=== PATIENT | female | born 1980 | race American Indian/Alaskan Native ===

== ENCOUNTER 2021-11-07 21:56 | Inpatient (IN) | payer OTHER ==
--- NOTE | 2021-11-07 22:37 | Emergency Department Report ---
ED General Adult HPI - General Chief complaint: Neuro Symptoms/Deficit Stated complaint: LEFT ARM PAIN PUI?: No Time Seen by Provider: 11/07/21 22:35 Source: patient, RN notes reviewed, old records reviewed Mode of arrival: Ambulatory Limitations: No Limitations - History of Present Illness Initial comments: The patient was evaluated in the emergency department for symptoms described in the history of present illness. He/she was evaluated in the context of the global COVID-19 pandemic, which necessitated consideration that the patient might be at risk for infection with the virus that causes COVID-19. Institutional protocols and algorithms that pertain to the evaluation of patients at risk for COVID-19 are in a state of rapid change based on information released by regulatory bodies including the CDC and federal and state organizations. These policies and algorithms were followed during the patient's care in the emergency department. Please note that these policies, procedures and recommendations changed on a rapid basis. This patient is a 41-year-old female, with a past medical history of body mass index of 41, hypertension, who works in this hospital, presenting to the ER today with a primary complaint of nontraumatic left upper extremity numbness and tingling, starting from her left shoulder moving down into her left bicep, then moving distally. Her last known well time is approximately 6 or 6:30 PM. The patient denies headache, neck pain, chest pain, abdominal pain. She endorses muscular paral umbar back pain, generalized lower extremity weakness, numbness, bladder or bowel retention incontinence and saddle anesthesia. 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 The patient does not have a known history of obstructive sleep apnea, but she has not had a formal sleep study. She denies urinary symptoms, the possibility of , and reports that she has not delivered her given within the past 6 weeks. She does report mostly being compliant with her antihypertensive medications. She does report that her primary care provider has experienced difficulty with controlling her blood pressure. -: hour(s) Location: left, upper extremity Consistency: intermittent Improves with: none Worsens with: none - Related Data Previous Rx's Medication Instructions Recorded Last Taken Type cloNIDine [Catapres] 0.1 mg PO Q12HR #60 tablet 01/29/14 Unknown Rx labetaloL [Labetalol 200mg TAB] 200 mg PO BID #60 tablet 01/29/14 Unknown Rx lisinopriL [Zestril TAB] 20 mg PO BID #60 tablet 01/29/14 Unknown Rx Allergies Allergy/AdvReac Type Severity Reaction Status Date / Time amlodipine Allergy Swelling Verified 11/07/21 22:11 lisinopril Allergy Swelling Verified 11/07/21 22:11 ED Review of Systems ROS: Stated complaint: LEFT ARM PAIN Other details as noted in HPI Constitutional: denies: fever Eyes: denies: eye discharge, vision change ENT: denies: epistaxis Respiratory: denies: cough Cardiovascular: denies: chest pain Gastrointestinal: denies: abdominal pain Musculoskeletal: back pain, myalgia. denies: arthralgia Neurological: weakness, numbness. denies: headache ED Past Medical Hx - Past Medical History Hx Hypertension: Yes Hx Heart Attack/AMI: No Hx Congestive Heart Failure: No Hx Diabetes: No Hx Deep Vein Thrombosis: No Hx Pulmonary Embolism: No Hx Liver Disease: No Hx Renal Disease: No Hx Arthritis: No Hx Headaches / Migraines: No Hx Seizures: No Hx Kidney Stones: No Hx Asthma: No Hx COPD: No Hx Tuberculosis: Yes Hx Dementia: No Hx HIV: No - Surgical History Hx Coronary Stent: No Hx Open Heart Surgery: No Hx Pacemaker: No Hx Internal Defibrillator: No Additional Surgical History: x 2 - Social History Smoking Status: Never Smoker - Medications Home Medications: Home Medications Medication Instructions Recorded Confirmed Last Taken Type cloNIDine [Catapres] 0.1 mg PO Q12HR #60 tablet 01/29/14 Unknown Rx labetaloL [Labetalol 200mg TAB] 200 mg PO BID #60 tablet 01/29/14 Unknown Rx lisinopriL [Zestril TAB] 20 mg PO BID #60 tablet 01/29/14 Unknown Rx ED Physical Exam - General Limitations: No Limitations General appearance: alert, in no apparent distress - Head Head exam: Present: atraumatic, normocephalic - Eye Eye exam: Present: normal appearance, PERRL, EOMI, other (Visual acuity intact to finger counting, color perception, reading at a close distance). Absent: nystagmus - ENT ENT exam: Present: normal exam, normal orophraynx, mucous membranes moist, normal external ear exam - Neck Neck exam: Present: normal inspection, full ROM. Absent: tenderness, m eningismus - Respiratory Respiratory exam: Present: normal lung sounds bilaterally. Absent: respiratory distress, wheezes, rales, rhonchi, stridor, decreased breath sounds - Cardiovascular Cardiovascular Exam: Present: regular rate, normal rhythm, normal heart sounds. Absent: bradycardia, tachycardia, irregular rhythm, systolic murmur, diastolic murmur, rubs, gallop - GI/Abdominal GI/Abdominal exam: Present: soft. Absent: distended, tenderness, guarding, rebound, rigid, pulsatile mass - Extremities Exam Extremities exam: Present: normal inspection, full ROM, other (2+ pulses noted in the bilateral upper and lower extremities. There is no palpable cord. negative Homans sign. Muscular compartments are soft. The pelvis is stable.). Absent: pedal edema, calf tenderness - Back Exam Back exam: Present: normal inspection, muscle spasm, paraspinal tenderness. Absent: tenderness, CVA tenderness (R), CVA tenderness (L), vertebral tenderness - Neurological Exam Neurological exam: Present: alert, oriented X3, normal gait, other (No facial droop. Tongue midline. Extraocular movements intact bilaterally. Facial sensation intact to light touch in V1, V2, V3 distribution bilaterally. 5 and a 5 strength in 4 extremities. Sensation intact to light touch in 4 extremities.). Absent: motor sensory deficit - Psychiatric Psychiatric exam: Present: normal affect, normal mood - Skin Skin exam: Present: warm, dry, intact, normal color. Absent: rash ED Course Vital Signs 11/07/21 11/08/21 22:08 00:33 Temperature 98.4 F Pulse Rate 71 Respiratory 20 Rate Blood Pressure 187/107 O2 Sat by Pulse 97 Oximetry O2 Sat by Pulse 99 Oximetry [ Digit-Finger] - Reevaluation(s) Reevaluation #1: 11/08/21 00:30 Differential diagnosis, including but not limited to: Cervical radiculopathy, TIA, chronic hypertension, musculoskeletal back pain Assessment and plan: 41-year-old female, who is clinically sober, with a GCS of 15, NIH score of 0, presenting with probable left-sided cervical radiculopathy. However, she does have a number of vascular risk factors for TIA. Patient not a tPA candidate given that she has an NIH score of 0 at this time. Her examination is not suggestive or indicative of a large vessel occlusion. Abdomen soft and benign, without pulsatile abdominal mass, and she has equal pulses in the upper and lower extremities, as well as reproducible back pain. Extensive discussion had with patient that she may have undiagnosed and untre ated obstructive sleep apnea, recommendations provided to patient to follow-up with an outpatient primary care doctor for sleep study. Have also advised patient to get at least 7 to 8 hours of good quality uninterrupted sleep each evening. Nevertheless, patient is recommended for admission to rule her out for TIA. Patient also works with the [employer] system, and asked if she could be transferred to the [place] system. [place] called up Milana Vyas in [facility], and they do not have available beds. I personally called the [place] transfer center yesterday for the [facility] for an unrelated patient, and they do not have available beds. The patient is agreeable to admission and hospitalization here. Currently awaiting callback from the hospital physician. Patient also seen in conjunction with stroke neurologist, Dr. Zimmer, who is in agreement with the plan of care. We will treat the patient's musculoskeletal back pain, start aspirin, and administer antihypertensive therapy. Reevaluation #2: 11/08/21 01:49 Dr Ruy Castorena to admit to [facility] - Pulse Oximetry Interpretation Digit-Finger Initial Pulse Oximetry Readin O2 Sat by Pulse Oximetry: 99 Actions Taken: none ED Medical Decision Making - Lab Data Result diagrams: 11/07/21 22:48 11/07/21 22:48 Vital Signs 11/07/21 22:08 Temperature 98.4 F Pulse Rate 71 Respiratory 20 Rate Blood Pressure 187/107 O2 Sat by Pulse 97 Oximetry Lab Results 11/07/21 11/07/21 11/07/21 Range/Units 22:30 22:48 22:48 WBC 7.3 (4.5-11.0) K/mm3 RBC 5.42 H (3.65-5.03) M/mm3 Hgb 9.1 L (10.1-14.3) gm/dl Hct 30.8 (30.3-42.9) % MCV 57 L (79-97) fl MCH 17 L (28-32) pg MCHC 30 (30-34) % RDW 19.2 H (13.2-15.2) % Plt Count 405 (140-440) K/mm3 Lymph % (Auto) 17.5 (13.4-35.0) % [place] % (Auto) 1.1 (0.0-7.3) % Eos % (Auto) 0.0 (0.0-4.3) % Baso % (Auto) 0.5 (0.0-1.8) % Lymph # (Auto) 1.3 (1.2-5.4) K/mm3 [place] # (Auto) 0.1 (0.0-0.8) K/mm3 Eos # (Auto) 0.0 (0.0-0.4) K/mm3 Baso # (Auto) 0.0 (0.0-0.1) K/mm3 Seg Neutrophils % 80.9 H (40.0-70.0) % Seg Neutrophils # 5.9 (1.8-7.7) K/mm3 PT 13.2 (12.2-14.9) Sec. INR 0.91 (0.87-1.13) APTT 24.1 L (24.2-36.6) Sec. Thrombin Time 14.1 L (15.1-19.6) Sec. Sodium (137-145) mmol/L Potassium (3.6-5.0) mmol/L Chloride (98-107) mmol/L Carbon Dioxide (22-30) mmol/L Anion Gap mmol/L BUN (7-17) mg/dL Creatinine (0.6-1.2) mg/dL Estimated GFR ml/min BUN/Creatinine Ratio % Glucose (65-100) mg/dL POC Glucose 244 H (70-105) mg/dL Calcium (8.4-10.2) mg/dL Total Bilirubin (0.1-1.2) mg/dL AST (5-40) units/L ALT (7-56) units/L Alkaline Phosphatase (35-129) units/L Total Creatine Kinase (30-135) units/L CK-MB (CK-2) (0.0-4.0) ng/mL CK-MB (CK-2) Rel Index (0-4) Troponin T (0.00-0.029) ng/mL Total Protein (6.3-8.2) g/dL Albumin (3.9-5) g/dL Albumin/Globulin Ratio % HCG, Quant (0-4) mIU/mL Plasma/Serum Alcohol (0-0.07) % 11/07/21 11/07/21 11/07/21 Range/Units 22:48 22:48 22:48 WBC (4.5-11.0) K/mm3 RBC (3.65-5.03) M/mm3 Hgb (10.1-14.3) gm/dl Hct (30.3-42.9) % MCV (79-97) fl MCH (28-32) pg MCHC (30-34) % RDW (13.2-15.2) % Plt Count (140-440) K/mm3 Lymph % (Auto) (13.4-35.0) % [place] % (Auto) (0.0-7.3) % Eos % (Auto) (0.0-4.3) % Baso % (Auto) (0.0-1.8) % Lymph # (Auto) (1.2-5.4) K/mm3 [place] # (Auto) (0.0-0.8) K/mm3 Eos # (Auto) (0.0-0.4) K/mm3 Baso # (Auto) (0.0-0.1) K/mm3 Seg Neutrophils % (40.0-70.0) % Seg Neutrophils # (1.8-7.7) K/mm3 PT (12.2-14.9) Sec. INR (0.87-1.13) APTT (24.2-36.6) Sec. Thrombin Time (15.1-19.6) Sec. Sodium 136 L (137-145) mmol/L Potassium 3.9 (3.6-5.0) mmol/L Chloride 99.1 (98-107) mmol/L Carbon Dioxide 21 L (22-30) mmol/L Anion Gap 20 mmol/L BUN 15 (7-17) mg/dL Creatinine 0.9 (0.6-1.2) mg/dL Estimated GFR > 60 ml/min BUN/Creatinine Ratio 17 % Glucose 259 H (65-100) mg/dL POC Glucose (70-105) mg/dL Calcium 9.9 (8.4-10.2) mg/dL Total Bilirubin 0.50 (0.1-1.2) mg/dL AST 20 (5-40) units/L ALT 6 L (7-56) units/L Alkaline Phosphatase 84 (35-129) units/L Total Creatine Kinase 123 (30-135) units/L CK-MB (CK-2) 1.3 (0.0-4.0) ng/mL CK-MB (CK-2) Rel Index 1.0 (0-4) Troponin T < 0.010 (0.00-0.029) ng/mL Total Protein 9.4 H (6.3-8.2) g/dL Albumin 4.5 (3.9-5) g/dL Albumin/Globulin Ratio 0.9 % HCG, Quant < 2 (0-4) mIU/mL Plasma/Serum Alcohol < 0.01 (0-0.07) % - EKG Data -: EKG Interpreted by [place] EKG shows normal: sinus rhythm Rate: normal - EKG Data 11/08/21 00:30 EKG is interpreted at 22: 24 Sinus rhythm, 63 bpm. Normal axis, normal intervals, motion artifact, QTC 4 2 6 ms, normal P wave axis. This EKG is not a STEMI. - Radiology Data Radiology results: pending, report reviewed, image reviewed CT HEAD WITHOUT CONTRAST INDICATION / CLINICAL INFORMATION: Stroke symptoms. TECHNIQUE: All CT scans at this location are performed using CT dose reduction for ALARA by means of automated exposure control. COMPARISON: None available. FINDINGS: BRAIN PARENCHYMA: No acute intracranial hemorrhage. No evidence of recent infarct. No mass effect or midline shift. VENTRICULAR SYSTEM/EXTRA-AXIAL SPACES: Ventricles are normal for age. No extra-axial fluid collection. ORBITS: Normal as visualized. SKELETAL SYSTEM/SOFT TISSUES: Normal bones and soft tissues. PARANASAL SINUSES/MASTOID AIR CELLS: No significant abnormality. ADDITIONAL FINDINGS: None. IMPRESSION: 1. No acute intracranial abnormality. CODE STROKE Time of Communication (MID LEVEL PROVIDER/CDT): 11/07/2021 9:49 PM. Licensed Practitioner Receiving Report: SAM GRANGER MD Signer Name: Brandon Boggs MD Signed: 11/07/2021 9:50 PM Workstation Name: [id number] Critical care attestation.: If time is entered above; I have spent that time in minutes in the direct care of this critically ill patient, excluding procedure time. ED Disposition Clinical Impression: Hypertensive urgency, BMI greater than 40, Left arm numbness Disposition: ADMITTED INPATIENT Is pt being admited?: Yes Does the pt Need Aspirin: No Condition: Good
--- NOTE | 2021-11-07 22:45 | Emergency Department Report ---
Blank Doc - Documentation Documentation: [facility] Consult Note # Demographics Consult Type: Acute Stroke Level 1 (0-4.5 hrs) Patient Location: Emergency Room First Name: Shanika Last Name: Dameon Date of : 1980 Age: 41 Gender: Female Facility: [facility] Time of Initial Page ( Time): 11/07/2021, 22:33 Time of Return Call ( Time): 11/07/2021, 22:33 # HPI History: 41yo F presents # Scores Time of exam and NIHSS ( Time): 11/07/2021, 22:41 Level of Consciousness 1a: [0] = Alert; keenly responsive LOC Questions 1b: [0] = Answers both questions correctly LOC Commands 1c: [0] = Performs both tasks correctly Best Gaze 2: [0] = Normal Visual 3: [0] = No visual loss Facial Palsy 4: [0] = Normal symmetrical movements Motor Arm Left 5a: [0] = No drift Motor Arm Right 5b: [0] = No drift Motor Leg Left 6a: [0] = No drift Motor Leg Right 6b: [0] = No drift Limb Ataxia 7: [0] = Absent Sensory 8: [1] = [id number] sensory loss Best Language 9: [0] = No aphasia Dysarthria 10: [0] = Normal Extinction and Inattention 11: [0] = No abnormality NIHSS Total: 1 # Data Head CT: no bleed preliminary read # Plan Thrombolytic/Intervention: NOT IV Thrombolysis or IA Intervention candidate Thrombolytic Exclusion (< 3 hour window): non-disabling deficit Intraarterial Exclusion: non-disabling Other: I have discussed my recommendations with the referring provider # [employer] Telemedicine: Interactive 2 way audio and visual telecommunication technology was utilized during this visit
--- NOTE | 2021-11-07 22:54 | Cat Scan Report ---
CT HEAD WITHOUT CONTRAST INDICATION / CLINICAL INFORMATION: Stroke symptoms. TECHNIQUE: All CT scans at this location are performed using CT dose reduction for ALARA by means of automated exposure control. COMPARISON: None available. FINDINGS: BRAIN PARENCHYMA: No acute intracranial hemorrhage. No evidence of recent infarct. No mass effect or midline shift. VENTRICULAR SYSTEM/EXTRA-AXIAL SPACES: Ventricles are normal for age. No extra-axial fluid collection . ORBITS: Normal as visualized. SKELETAL SYSTEM/SOFT TISSUES: Normal bones and soft tissues. PARANASAL SINUSES/MASTOID AIR CELLS: No significant abnormality. ADDITIONAL FINDINGS: None. IMPRESSION: 1. No acute intracranial abnormality. CODE STROKE Time of Communication (SIGN LANGUAGE INSTRUCTOR/CDT): 11/07/2021 9:49 PM. Licensed Practitioner Receiving Report: SAM GRANGER MD Signer Name: Fred Boggs MD Signed: 11/07/2021 10:50 PM Workstation Name: [id number]
[2021-11-07 23:06] LABS: Basophils % (Auto) 0.5 % (0.0-1.8); Lymphocytes # (Auto) 1.3 K/mm3 (1.2-5.4); Lymphocytes % (Auto) 17.5 % (13.4-35.0); Mean Corpuscular HGB Conc 30 % (30-34); Monocytes # (Auto) 0.1 K/mm3 (0.0-0.8); Monocytes % (Auto) 1.1 % (0.0-7.3); Platelet Count 405 K/mm3 (140-440); Red Blood Count 5.42 M/mm3 (3.65-5.03); Red Cell Distribution Width 19.2 % (13.2-15.2)
[2021-11-07 23:10] LABS: Hematocrit 30.8 % (30.3-42.9); Hemoglobin 9.1 gm/dl (10.1-14.3)
[2021-11-07 23:11] LABS: Mean Corpuscular Volume 57 fl (79-97)
[2021-11-07 23:16] LABS: INR 0.91 (0.87-1.13)
[2021-11-07 23:17] LABS: Partial Thromboplastin Time 24.1 Sec. (24.2-36.6); Thrombin Time 14.1 Sec. (15.1-19.6)
[2021-11-07 23:22] LABS: Alanine Aminotransferase 6 units/L (7-56); Albumin 4.5 g/dL (3.9-5); BUN/Creatinine Ratio 17; Blood Urea Nitrogen 15 mg/dL (7-17); Calcium 9.9 mg/dL (8.4-10.2); Creatine Kinase MB 1.3 ng/mL (0.0-4.0); Hemolysis Index 0
[2021-11-07] MEDS ORDERED: hydrALAZINE 20 MG/1 ML INJ IV STA (23:42)
[2021-11-07] MEDS ORDERED: ASPIRIN 325 MG TAB PO ONE (23:42)
[2021-11-07] MEDS ORDERED: ACETAMINOPHEN 500 MG TAB PO ONE (23:42)
[2021-11-08] MEDS ORDERED: IBUPROFEN 400 MG TAB PO ONE (01:44)
[2021-11-08] MEDS ORDERED: PROMETHAZINE 25 MG RECT SUPP PR PRN (02:17)
[2021-11-08] MEDS ORDERED: ACETAMINOPHEN 325 MG TAB PO PRN (02:17)
[2021-11-08] MEDS ORDERED: MAGNESIUM HYDROXIDE (MOM) ORAL LIQD UDC PO PRN ×2 (02:17)
[2021-11-08] MEDS ORDERED: METOCLOPRAMIDE 10 MG TAB PO PRN (02:17)
[2021-11-08] MEDS ORDERED: MORPHINE 4 MG/1 ML INJ IV PRN ×2 (02:17)
[2021-11-08] MEDS ORDERED: ONDANSETRON 4 MG/2 ML INJ IV PRN ×2 (02:17)
[2021-11-08] MEDS ORDERED: MORPHINE 2 MG/1 ML INJ IV PRN (02:17)
--- NOTE | 2021-11-08 02:37 | History and Physical Report ---
History of Present Illness Date of examination: 11/08/21 Date of admission: 11/08/2021 Chief complaint: Left upper extremity numbness History of present illness: 41-year-old female with known of hypertension, obstructive sleep apnea and morbid obesity presenting to the emergency room today extremity numbness ,tingling with some left shoulder pain. Symptoms were said started about 6:30 PM earlier in the day. She admits that she has been having some lower back extremity weakness this. She denies any headache or dizziness, no nausea or vomiting and no abdominal pain. She denies any fever or chills, denies any urinary or fecal incontinence. 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 Upon arrival in the emergency room today, blood pressure was elevated with systolic in the 170s and diastolic in the 80s. Work-up in the emergency room today, lab is significant hyperglycemia of 259. CT scan of the head was unremarkable. Past History Past Medical History: hypertension Past Surgical History: Social history: no significant social history Family history: no significant family history Medications and Allergies Allergies Allergy/AdvReac Type Severity Reaction Status Date / Time amlodipine Allergy Swelling Verified 11/07/21 22:11 lisinopril Allergy Swelling Verified 11/07/21 22:11 Home Medications Medication Instructions Recorded Confirmed Last Taken Type cloNIDine [Catapres] 0.1 mg PO Q12HR #60 tablet 01/29/14 Unknown Rx labetaloL [Labetalol 200mg TAB] 200 mg PO BID #60 tablet 01/29/14 Unknown Rx lisinopriL [Zestril TAB] 20 mg PO BID #60 tablet 01/29/14 Unknown Rx Active Meds: Active Medications Acetaminophen (Acetaminophen 325 Mg Tab) 650 mg PO Q4H PRN PRN Reason: Pain MILD(1-3)/Fever >100.5/GALVAN Acetaminophen (Acetaminophen 325 Mg Tab) 650 mg PO Q4H PRN PRN Reason: Pain, Mild (1-3) Aspirin (Aspirin 325 Mg Tab) 325 mg PO QDAY JAIRO Atorvastatin Calcium (Atorvastatin 40 Mg Tab) 40 mg PO QHS JAIRO Bisacodyl (Bisacodyl 10 Mg Rect Supp) 10 mg OH QDAY PRN PRN Reason: Constipation Magnesium Hydroxide (Magnesium Hydroxide (Mom) Oral Liqd Udc) 30 ml PO Q4H PRN PRN Reason: Constipation Magnesium Hydroxide (Magnesium Hydroxide (Mom) Oral Liqd Udc) 30 ml PO Q4H PRN PRN Reason: Constipation Metoclopramide HCl (Metoclopramide 10 Mg Tab) 10 mg PO Q6H PRN PRN Reason: Nausea And Vomiting Morphine Sulfate (Morphine 2 Mg/1 Ml Inj) 2 mg IV Q4H PRN PRN Reason: Pain, Moderate (4-6) Morphine Sulfate (Morphine 4 Mg/1 Ml Inj) 4 mg IV Q4H PRN PRN Reason: Pain , Severe (7-10) Morphine Sulfate (Morphine 2 Mg/1 Ml Inj) 2 mg IV Q4H PRN PRN Reason: Pain, Moderate (4-6) Morphine Sulfate (Morphine 4 Mg/1 Ml Inj) 4 mg IV Q4H PRN PRN Reason: Pain , Severe (7-10) Ondansetron HCl (Ondansetron 4 Mg/2 Ml Inj) 4 mg IV Q8H PRN PRN Reason: Nausea And Vomiting Ondansetron HCl (Ondansetron 4 Mg/2 Ml Inj) 4 mg IV Q8H PRN PRN Reason: Nausea And Vomiting Promethazine HCl (Promethazine 25 Mg Rect Supp) 25 mg OH Q6H PRN PRN Reason: Nausea And Vomiting Sodium Chloride (Sodium Chloride 0.9% 10 Ml Flush Syringe) 10 ml IV BID JAIRO Sodium Chloride (Sodium Chloride 0.9% 10 Ml Flush Syringe) 10 ml IV PRN PRN PRN Reason: LINE FLUSH Sodium Chloride (Sodium Chloride 0.9% 10 Ml Flush Syringe) 10 ml INJ PRN PRN PRN Reason: LINE FLUSH Review of Systems Constitutional: no fever, no chills Ears, nose, mouth and throat: no nasal congestion, no sore throat Cardiovascular: no chest pain, no orthopnea, no palpitations Respiratory: no cough, no shortness of breath Gastrointestinal: no abdominal pain, no nausea, no vomiting, no diarrhea Genitourinary Female: no flank pain, no dysuria, no hematuria Musculoskeletal: low back pain, no neck pain Integumentary: no rash, no pruritis Neurological: no headaches, no confusion Psychiatric: no anxiety, no depression Endocrine: no polyphagia, no polydipsia, no polyuria, no nocturia Exam - Constitutional Vitals: Temp Pulse Resp BP Pulse Ox 98.4 F 71 20 173/80 99 11/07/21 22:08 11/07/21 22:08 11/07/21 22:08 11/08/21 01:58 11/08/21 01:49 General appearance: Present: no acute distress, well-nourished - EENT Eyes: Present: PERRL, EOM intact. Absent: scleral icterus ENT: hearing intact, clear oral mucosa, dentition normal - Neck Neck: Present: supple, normal ROM - Respiratory Respiratory effort: normal Respiratory: bilateral: CTA - Cardiovascular Rhythm: regular Heart Sounds: Present: S1 & S2. Absent: gallop, systolic murmur, diastolic murmur, rub, click - Extremities Extremities: no ischemia, pulses intact, pulses symmetrical, No edema, normal temperature, normal color, Full ROM Peripheral Pulses: within normal limits - Abdominal General gastrointestinal: Present: soft, non-tender, non-distended, normal bowel sounds. Absent: mass - Integumentary Integumentary: Present: clear, warm, dry, normal turgor. Absent: rash - Musculoskeletal Musculoskeletal: strength equal bilaterally - Psychiatric Psychiatric: appropriate mood/affect, intact judgment & insight, memory intact, cooperative - Neurologic Neurologic: CNII-XII intact, no focal deficits, moves all extremities HEART Score - HEART Score Troponin: Troponin T < 0.010 ng/mL (0.00-0.029) 11/07/21 22:48 Results - Labs CBC & Chem 7: 11/07/21 22:48 11/07/21 22:48 Labs: Abnormal lab results 11/07/21 11/07/21 11/07/21 Range/Units 22:30 22:48 22:48 RBC 5.42 H (3.65-5.03) M/mm3 Hgb 9.1 L (10.1-14.3) gm/dl MCV 57 L (79-97) fl MCH 17 L (28-32) pg RDW 19.2 H (13.2-15.2) % Seg Neutrophils % 80.9 H (40.0-70.0) % APTT 24.1 L (24.2-36.6) Sec. Thrombin Time 14.1 L (15.1-19.6) Sec. Sodium (137-145) mmol/L Carbon Dioxide (22-30) mmol/L Glucose (65-100) mg/dL POC Glucose 244 H (70-105) mg/dL ALT (7-56) units/L Total Protein (6.3-8.2) g/dL // Range/Units 22:48 RBC (3.65-5.03) M/mm3 Hgb (10.1-14.3) gm/dl MCV (79-97) fl MCH (28-32) pg RDW (13.2-15.2) % Seg Neutrophils % (40.0-70.0) % APTT (24.2-36.6) Sec. Thrombin Time (15.1-19.6) Sec. Sodium 136 L (137-145) mmol/L Carbon Dioxide 21 L (22-30) mmol/L Glucose 259 H (65-100) mg/dL POC Glucose (70-105) mg/dL ALT 6 L (7-56) units/L Total Protein 9.4 H (6.3-8.2) g/dL Assessment and Plan - Patient Problems (1) Left arm numbness Current Visit: Yes Status: Acute Plan to address problem: Allergy unclear. Patient will be scheduled for MRI of the brain, carotid Doppler Consult placed to neurology for evaluation and recommendations. (2) Morbid obesity with BMI of 40.0-44.9, adult Current Visit: Yes Status: Acute Plan to address problem: [facility] dietary consult. Lifestyle modification encouraged. (3) Hypertensive urgency Current Visit: Yes Status: Acute Plan to address problem: Resume routine home medications and monitor vital signs closely. (4) Radiculopathy with lower extremity symptoms Current Visit: No Status: Acute Plan to address problem: We await further evaluation by neurology. (5) Hyperglycemia Current Visit: Yes Status: Acute Plan to address problem: Will monitor accucheck (6) DVT prophylaxis Current Visit: Yes Status: Acute Plan to address problem: Patient placed on subcutaneous heparin. (7) Full code status Current Visit: Yes Status: Acute Plan to address problem: Patient is full code.
[2021-11-08] MEDS ORDERED: DEXTROSE 50% IN WATER (25GM) 50 ML SYRINGE IV PRN (08:30)
[2021-11-08 08:59] LABS: Chol/HDL Ratio 4.44 %
[2021-11-08] MEDS ORDERED: hydrALAZINE 20 MG/1 ML INJ IV PRN (09:00)
--- NOTE | 2021-11-08 09:17 | Consultation ---
History of Present Illness Consult date: 11/08/21 Reason for Consult: Left side numbness History of present illness: Left upper extremity numbness History of present illness: 41-year-old female with known of hypertension, obstructive sleep apnea and morbid obesity,SP gastric sleeve surgery 2016 Presented to the emergency room today extremity numbness ,tingling with some left shoulder pain. Symptoms were said started about 6:30 PM earlier in the day. She admits that she has been having some lower back extremity weakness She denies any headache or dizziness, no nausea or vomiting and no abdominal pain. She denies any fever or chills, denies any urinary or fecal incontinence. 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 Upon arrival in the emergency room today, blood pressure was elevated with systolic in the 170s and diastolic in the 80s. Work-up in the emergency room today, lab is significant hyperglycemia of 259. CT scan of the head was unremarkable. pt. is with hx of gastric sleeve surgery 2017 she lost over55 lbs initially and now she gained 30 lbs she is taking no vitamins Past History Past Medical History: hypertension Past Surgical History: , gastic sleeve surgery 2017 Social history: no significant social history Family history: no significant family history Medications and Allergies Allergies Allergy/AdvReac Type Severity Reaction Status Date / Time amlodipine Allergy Swelling Verified 11/07/21 22:11 lisinopril Allergy Swelling Verified 11/07/21 22:11 Home Medications Medication Instructions Recorded Confirmed Last Taken Type cloNIDine [Catapres] 0.1 mg PO Q12HR #60 tablet 01/29/14 Unknown Rx labetaloL [Labetalol 200mg TAB] 200 mg PO BID #60 tablet 01/29/14 Unknown Rx lisinopriL [Zestril TAB] 20 mg PO BID #60 tablet 01/29/14 Unknown Rx Active Meds: Active Medications Acetaminophen (Acetaminophen 325 Mg Tab) 650 mg PO Q4H PRN PRN Reason: Pain MILD(1-3)/Fever >100.5/GALVAN Acetaminophen (Acetaminophen 325 Mg Tab) 650 mg PO Q4H PRN PRN Reason: Pain, Mild (1-3) Aspirin (Aspirin 325 Mg Tab) 325 mg PO QDAY JAIRO Atorvastatin Calcium (Atorvastatin 40 Mg Tab) 40 mg PO QHS JAIRO Bisacodyl (Bisacodyl 10 Mg Rect Supp) 10 mg MI QDAY PRN PRN Reason: Constipation Magnesium Hydroxide (Magnesium Hydroxide (Mom) Oral Liqd Udc) 30 ml PO Q4H PRN PRN Reason: Constipation Magnesium Hydroxide (Magnesium Hydroxide (Mom) Oral Liqd Udc) 30 ml PO Q4H PRN PRN Reason: Constipation Metoclopramide HCl (Metoclopramide 10 Mg Tab) 10 mg PO Q6H PRN PRN Reason: Nausea And Vomiting Morphine Sulfate (Morphine 2 Mg/1 Ml Inj) 2 mg IV Q4H PRN PRN Reason: Pain, Moderate (4-6) Morphine Sulfate (Morphine 4 Mg/1 Ml Inj) 4 mg IV Q4H PRN PRN Reason: Pain , Severe (7-10) Morphine Sulfate (Morphine 2 Mg/1 Ml Inj) 2 mg IV Q4H PRN PRN Reason: Pain, Moderate (4-6) Morphine Sulfate (Morphine 4 Mg/1 Ml Inj) 4 mg IV Q4H PRN PRN Reason: Pain , Severe (7-10) Ondansetron HCl (Ondansetron 4 Mg/2 Ml Inj) 4 mg IV Q8H PRN PRN Reason: Nausea And Vomiting Ondansetron HCl (Ondansetron 4 Mg/2 Ml Inj) 4 mg IV Q8H PRN PRN Reason: Nausea And Vomiting Promethazine HCl (Promethazine 25 Mg Rect Supp) 25 mg MI Q6H PRN PRN Reason: Nausea And Vomiting Sodium Chloride (Sodium Chloride 0.9% 10 Ml Flush Syringe) 10 ml IV BID JAIRO Sodium Chloride (Sodium Chloride 0.9% 10 Ml Flush Syringe) 10 ml IV PRN PRN PRN Reason: LINE FLUSH Sodium Chloride (Sodium Chloride 0.9% 10 Ml Flush Syringe) 10 ml INJ PRN PRN PRN Reason: LINE FLUSH Review of Systems Constitutional: no fever, no chills Ears, nose, mouth and throat: no nasal congestion, no sore throat Cardiovascular: no chest pain, no orthopnea, no palpitations Respiratory: no cough, no shortness of breath Gastrointestinal: no abdominal pain, no nausea, no vomiting, no diarrhea Genitourinary Female: no flank pain, no dysuria, no hematuria Musculoskeletal: low back pain, no neck pain Integumentary: no rash, no pruritis Neurological: no headaches, no confusion Psychiatric: no anxiety, no depression Endocrine: no polyphagia, no polydipsia, no polyuria, no nocturia Exam Past History Past Medical History: hypertension Past Surgical History: Social history: no significant social history Family history: no significant family history Medications and Allergies Allergies Allergy/AdvReac Type Severity Reaction Status Date / Time amlodipine Allergy Swelling Verified 11/07/21 22:11 lisinopril Allergy Swelling Verified 11/07/21 22:11 Home Medications Medication Instructions Recorded Confirmed Last Taken Type cloNIDine [Catapres] 0.1 mg PO Q12HR #60 tablet 01/29/14 Unknown Rx labetaloL [Labetalol 200mg TAB] 200 mg PO BID #60 tablet 01/29/14 Unknown Rx lisinopriL [Zestril TAB] 20 mg PO BID #60 tablet 01/29/14 Unknown Rx Active Meds: Active Medications Acetaminophen (Acetaminophen 325 Mg Tab) 650 mg PO Q4H PRN PRN Reason: Pain, Mild (1-3) Aspirin (Aspirin 325 Mg Tab) 325 mg PO QDAY JAIRO Atorvastatin Calcium (Atorvastatin 40 Mg Tab) 40 mg PO QHS JAIRO Bisacodyl (Bisacodyl 10 Mg Rect Supp) 10 mg MI QDAY PRN PRN Reason: Constipation Clonidine HCl (Clonidine 0.1 Mg Tab) 0.1 mg PO Q12HR [facility] Dextrose (Dextrose 50% In Water (25gm) 50 Ml Syringe) 50 ml IV Q30MIN PRN; Protocol PRN Reason: Hypoglycemia Heparin Sodium (Porcine) (Heparin 5,000 Unit/1 Ml Vial) 5,000 unit SUB-Q Q8HR [facility] Hydralazine HCl (Hydralazine 20 Mg/1 Ml Inj) 10 mg IV Q6H PRN PRN Reason: Blood Pressure Hydralazine HCl (Hydralazine 25 Mg Tab) 25 mg PO Q8HR JAIRO Hydrochlorothiazide (Hydrochlorothiazide 12.5 Mg Cap) 12.5 mg PO QDAY [facility] Insulin Human Lispro (Insulin Lispro 100 Unit/Ml) 0 unit SUB-Q ACHS JAIRO; Protocol Magnesium Hydroxide (Magnesium Hydroxide (Mom) Oral Liqd Udc) 30 ml PO Q4H PRN PRN Reason: Constipation Metoclopramide HCl (Metoclopramide 10 Mg Tab) 10 mg PO Q6H PRN PRN Reason: Nausea And Vomiting Morphine Sulfate (Morphine 2 Mg/1 Ml Inj) 2 mg IV Q4H PRN PRN Reason: Pain, Moderate (4-6) Morphine Sulfate (Morphine 4 Mg/1 Ml Inj) 4 mg IV Q4H PRN PRN Reason: Pain , Severe (7-10) Ondansetron HCl (Ondansetron 4 Mg/2 Ml Inj) 4 mg IV Q8H PRN PRN Reason: Nausea And Vomiting Promethazine HCl (Promethazine 25 Mg Rect Supp) 25 mg MI Q6H PRN PRN Reason: Nausea And Vomiting Sodium Chloride (Sodium Chloride 0.9% 10 Ml Flush Syringe) 10 ml IV BID JAIRO Sodium Chloride (Sodium Chloride 0.9% 10 Ml Flush Syringe) 10 ml IV PRN PRN PRN Reason: LINE FLUSH Physical Examination - Vital Signs Vital Signs: Vital Signs Temp Pulse Resp BP Pulse Ox 98.4 F 71 20 187/107 97 11/07/21 22:08 11/07/21 22:08 11/07/21 22:08 11/07/21 22:08 11/07/21 22:08 - Constitutional General appearance: comfortable - EENT EENT: Present: PERRL, mucous membranes moist - Respiratory Respiratory: Present: lungs clear, rhonchi - Cardiovascular Cardiovascular: Present: regular rate, normal S1, normal S2 Extremities: Present: no peripheral edema bilatateraly, no clubbing, cyanosis - Gastrointestinal Gastrointestinal: Present: normoactive bowel sounds - Integumentary Integumentary: Present: normal - Neurologic Cranial nerve examination: PERRL, EOMI, intact Speech examination: intact Sensorimotor examination: intact Detailed motor examination: grossly full strength in, other (possible tinnel sign at the wrist L>R. reflexes are brisk bilteral Lower> upper , no clonus planter is down ,gait not done) - Level of Consciousness 1a. Level of Consciousness: alert/keenly responsive - LOC Questions 1b. LOC Questions: answers both correctly - LOC Command 1c. LOC Commands: performs tasks correctly - Best Gaze 2. Best Gaze: normal - Visual 3. Visual: no visual loss - Facial Palsy 4. Facial Palsy: normal symmetrical movement - Motor Arm 5a. Motor Arm Left: no drift 5b. Motor Arm Right: no drift - Motor Leg 6a. Motor Leg Left: no drift 6b. Motor Leg Right: no drift - Limb Ataxia 7. Limb Ataxia: absent - Sensory 8. Sensory: normal - Best Language 9. Best Language: no aphasia - Dysarthria 10. Dysarthria: normal - Extinction and Inattention 11. Extinction/Inattention: no abnormality - Scoring Total Score: 0 Stroke Severity: No Stroke Symptoms Results - Laboratory Findings CBC and BMP: 11/07/21 22:48 11/07/21 22:48 Abnormal Lab Findings: Abnormal Labs 11/07/21 11/07/21 11/07/21 22:30 22:48 22:48 RBC 5.42 H Hgb 9.1 L MCV 57 L MCH 17 L RDW 19.2 H Seg Neutrophils % 80.9 H APTT 24.1 L Thrombin Time 14.1 L Sodium Carbon Dioxide Glucose POC Glucose 244 H Hemoglobin A1c ALT Total Protein HDL Cholesterol 11/07/21 11/08/21 11/08/21 22:48 08:26 08:26 RBC Hgb MCV MCH RDW Seg Neutrophils % APTT Thrombin Time Sodium 136 L Carbon Dioxide 21 L Glucose 259 H POC Glucose Hemoglobin A1c 7.4 H ALT 6 L Total Protein 9.4 H HDL Cholesterol 36 L Assessment and Plan Assessment and Plan 41-year-old female with known of hypertension, obstructive sleep apnea and morbid obesity presenting to the emergency room today extremity numbness ,tingling with some left shoulder pain. Symptoms were said started about 6:30 PM earlier in the day. She admits that she has been having some lower back extremity weakness this. She denies any headache or dizziness, no nausea or vomiting and no abdominal pain. She denies any fever or chills, denies any urinary or fecal incontinence. - Patient Problems # Left arm numbness intermittent -with possible shoulder pain and dorsal pain -NIH#0 -Tinnel sign is positive at wrist -Ct brain is unremarkable -MRI brain is unremarkable done wo gd -US carotid is unremarkab;e -Echo is pending -started on ASA and Lipitor -LDL#107 -A1C#7.4 +++ finding from hx and exam is suggestive of CTS vs Cervical radiculopathy ,B12 deficiency can not be excluded +++ B12 level,TSH,MRI cerviacl spine with gd # Hx of gastic bypass surgery 2017 -Morbid obesity -possible b12 deficiency -Multi vitamins daily # Morbid obesity with BMI of 40.0-44.9, adult -[facility] dietary consult. -Lifestyle modification encouraged. # Hypertensive urgency -Resume routine home medications and monitor vital signs closely. # Hyperglycemia -A1C#7.4 -Will monitor accucheck # Hyperlipidemia -LDL#107 -Lipitor 40 mg daily # Left side > right side numbness -suggest MRI cervical -Brain MRI wo gd is unremarkable -B12 level -Pt therapy -Brisk reflexes Bilateral L>U # Possible CTS -Might need NCS as out pt. -with neurology follow up # DVT prophylaxis -Patient placed on subcutaneous heparin. # Full code status -Patient is full code. will follow
[2021-11-08] MEDS: hydrALAZINE 25 MG TAB PO SCH ×3 (09:25→22:04)
[2021-11-08] MEDS: HEPARIN 5,000 UNIT/1 ML VIAL SUB-Q SCH ×3 (09:30→22:06)
[2021-11-08] MEDS ORDERED: LISINOPRIL 20 MG TAB PO SCH (10:00)
--- NOTE | 2021-11-08 11:34 | Vascular Lab Report ---
DUPLEX DOPPLER ULTRASOUND CAROTID, BILATERAL INDICATION / CLINICAL INFORMATION: stroke. COMPARISON: None available. FINDINGS: RIGHT CAROTID: No significant atherosclerotic plaque. - PLAQUE ESTIMATE (%): None. - CCA velocity: 109 cm/sec. - ICA peak systolic velocity: 90 cm/sec. - ICA/CCA PSV Ratio: Less than 2. Right Vertebral Artery: Antegrade flow. LEFT CAROTID: Minimal atherosclerotic plaque. - PLAQUE ESTIMATE (%): < 50% - CCA velocity: 96 cm/sec. - ICA peak systolic velocity: 94 cm/sec. - ICA/CCA PSV Ratio: Less than 2. Left Vertebral Artery: Antegrade flow. IMPRESSION: 1. Right Internal Carotid Artery: Normal. No stenosis. 2. Left Internal Carotid Artery: Less than 50% diameter stenosis. Velocity criteria are extrapolated from diameter data as defined by the Society of Radiologists in Ul trasound Consensus Conference, Radiology 2003; 229;340-346. NO STENOSIS (NORMAL) - Plaque = none; ICA PSV < 125 cm/sec; ICA/CCA PSV Ratio < 2.0 <50% STENOSIS - Plaque < 50%; ICA PSV < 125 cm/sec; ICA/CCA PSV Ratio < 2.0 50-69% STENOSIS - Plaque > 50%; ICA PSV = 125-230 cm/sec; ICA/CCA PSV Ratio = 2.0-4.0 >70% BUT <100% STENOSIS - Plaque > 50%; ICA PSV > 230 cm/sec; ICA/CCA PSV Ratio > 4.0 NEAR OCCLUSION - Plaque = visible lumen; ICA PSV = high/low/none; ICA/CCA PSV Ratio = variable TOTAL OCCLUSION - Plaque = no lumen; ICA PSV = none; ICA/CCA PSV Ratio = N/A Scribed by: Jennie Braun RDMS, RVT, RMSKS Scribed: 11/08/2021 10:24 AM I have reviewed the images, agree with this report, and edited this report as needed. Signer Name: Jn Rick MD Signed: 11/08/2021 11:30 AM Workstation Name: [id number]
[2021-11-08] MEDS: ASPIRIN 325 MG TAB PO SCH (12:10)
[2021-11-08] MEDS: hydroCHLOROthiazide 12.5 MG CAP PO SCH (12:10)
[2021-11-08] MEDS: MORPHINE 2 MG/1 ML INJ IV PRN (12:10)
[2021-11-08] MEDS: cloNIDine 0.1 MG TAB PO SCH ×2 (12:10→22:05)
--- NOTE | 2021-11-08 12:19 | Magnetic Resonance Report ---
MRI BRAIN 11/08/2021 INDICATION / CLINICAL INFORMATION: stroke. TECHNIQUE: Multiplanar, multisequence MR images of the brain were obtained. COMPARISON: None available. FINDINGS: BRAIN / INTRACRANIAL CONTENTS: Unenhanced MR images of the brain demonstrate no evidence of acute abn ormality. Ventricles and sulci are normal in size and shape. There is no evidence of ischemic injury, demyelination, hemorrhage, or mass. There are no abnormal ex tra-axial fluid collections. EXTRACRANIAL: Unremarkable CRANIOCERVICAL JUNCTION: No significant abnormality. VASCULAR FLOW-VOIDS: No significant abnormality. IMPRESSION: Negative unenhanced MRI of the brain Signer Name: Samir Gonzalez MD Signed: 11/08/2021 12:15 PM Workstation Name: [employer]
[2021-11-08] MEDS: INSULIN LISPRO 100 UNIT/ML SUB-Q SCH ×3 (12:32→22:06)
--- NOTE | 2021-11-08 12:32 | Event Note ---
Date: 11/08/21 Patient was seen at bedside. Reports L sided numbness and weakness which has improved. We discussed laboratory and imaging findings. She did have diabetes in the past and stopped treatment after gastric sleeve surgery. Her current A1C is 7.4% and she was agreeable to restart metformin. She currently takes HCTZ and hydralazine for HTN. Home medications were restarted. Will continue with current care plan and pending final Neurology recommendations.
[2021-11-08] MEDS: MULTIVITAMINS ,THERAPEUTIC TAB PO SCH (15:15)
[2021-11-08] MEDS: metFORMIN XR 500MG TAB PO SCH (15:20)
--- NOTE | 2021-11-08 15:56 | Magnetic Resonance Report ---
MRI CERVICAL SPINE WITHOUT AND WITH CONTRAST INDICATION / CLINICAL INFORMATION: Patient recently admitted with symptoms of stroke. Additional history provided is "question metastati c disease". TECHNIQUE: Multisequence, multiplanar images of the cervical spine were obtained. COMPARISON: None available. MRI cervical spine without and with contrast. FINDINGS: POSTOPERATIVE CHANGES: none CRANIOCERVICAL JUNCTION:No significant abnormality. ALIGNMENT: No significant abnormality. VERTEBRAE:Benign hemangiomata of bone is suspected in the C7 vertebral body. No suspicious bone lesio ns are identified. CERVICAL INTERVERTEBRAL DISCS:Disc height and signal intensity are normally maintained. VISUALIZED SPINAL CORD: No intrinsic cord lesions are identified. [id number]-VF-[id number] ANALYSIS: C2-3: Small central disc protrusion flattens the thecal sac slightly. Central spinal canal and neurof oramina are adequately maintained. C3-4: Minimal central disc protrusion flattens the thecal sac slightly. Central spinal canal and neur oforamina are adequately maintained. C4-5: No significant disc abnormality, spinal canal stenosis, or neural foraminal stenosis. C5-6: No significant disc abnormality, spinal canal stenosis, or neural foraminal stenosis. C6-7: No significant disc abnormality, spinal canal stenosis, or neural foraminal stenosis. C7-T1: No significant disc abnormality, spinal canal stenosis, or neural foraminal stenosis. PARASPINAL SOFT TISSUES: No significant abnormality. Following administration of intravenous contrast material enhancement of normal vascular structures i s demonstrated. No areas of abnormal contrast enhancement are identified. IMPRESSION: 1. No indication of disc herniation, central canal stenosis or neuroforaminal narrowing. Signer Name: Tre Lizarraga MD Signed: 11/08/2021 3:52 PM Workstation Name: [email or web address]
[2021-11-08] MEDS: tiZANidine TAB 4 MG TAB PO PRN (17:15)
[2021-11-09] MEDS: ACETAMINOPHEN 325 MG TAB PO PRN ×3 (02:15→22:07)
[2021-11-09] MEDS: tiZANidine TAB 4 MG TAB PO PRN ×3 (02:19→22:07)
[2021-11-09 04:53] LABS: Basophils % (Auto) 0.3 % (0.0-1.8); Eosinophils % (Auto) 0.1 % (0.0-4.3); Hematocrit 25.3 % (30.3-42.9); Hemoglobin 7.7 gm/dl (10.1-14.3); Lymphocytes # (Auto) 2.7 K/mm3 (1.2-5.4); Lymphocytes % (Auto) 28.1 % (13.4-35.0); Mean Corpuscular HGB Conc 31 % (30-34); Monocytes # (Auto) 0.7 K/mm3 (0.0-0.8); Monocytes % (Auto) 7.3 % (0.0-7.3); Platelet Count 343 K/mm3 (140-440); Red Blood Count 4.47 M/mm3 (3.65-5.03); Red Cell Distribution Width 19.2 % (13.2-15.2)
[2021-11-09 05:02] LABS: Mean Corpuscular Volume 57 fl (79-97)
[2021-11-09 05:15] LABS: BUN/Creatinine Ratio 22; Blood Urea Nitrogen 22 mg/dL (7-17); Calcium 9.4 mg/dL (8.4-10.2); Hemolysis Index 1
[2021-11-09] MEDS: hydrALAZINE 25 MG TAB PO SCH ×3 (06:06→22:02)
[2021-11-09] MEDS: HEPARIN 5,000 UNIT/1 ML VIAL SUB-Q SCH ×3 (06:52→22:05)
--- NOTE | 2021-11-09 09:43 | Progress Note ---
Assessment and Plan Assessment and Plan 41-year-old female with known of hypertension, obstructive sleep apnea and morbid obesity presenting to the emergency room today extremity numbness ,tingling with some left shoulder pain. Symptoms were said started about 6:30 PM earlier in the day. She admits that she has been having some lower back extremity weakness this. She denies any headache or dizziness, no nausea or vomiting and no abdominal pain. She denies any fever or chills, denies any urinary or fecal incontinence. - Patient Problems # Left arm numbness intermittent -with possible shoulder pain and dorsal pain -NIH#0 -Tinnel sign is positive at wrist -Ct brain is unremarkable -MRI brain is unremarkable done wo gd -US carotid is unremarkable -Echo is pending -started on ASA and Lipitor -LDL#107 -A1C#7.4 -B12 and Folate wnl -MRI cervical is unremarkable # Hx of gastic bypass surgery 2017 -Morbid obesity -Multi vitamins daily # Morbid obesity with BMI of 40.0-44.9, adult -[facility] dietary consult. -Lifestyle modification encouraged. # Hypertensive urgency -Resume routine home medications and monitor vital signs closely. # Hyperglycemia -A1C#7.4 -Will monitor accucheck # Hyperlipidemia -LDL#107 -Lipitor 40 mg daily # Left side > right side numbness - MRI cervical is unremarkable done with gd -Brain MRI wo gd is unremarkable -B12 level#501 -Pt therapy -Brisk reflexes Bilateral no clonus # Possible CTS/ Neuropathy -Might need NCS as out pt. -with neurology follow up # DVT prophylaxis -Patient placed on subcutaneous heparin. # Full code status -Patient is full code. PLAN 1- Review echo 2- Better control of DM,A1C<7 3- Control BP<150/80 4-Multivitamis daily 5- Neurology follow up 6- Maintain ASA 81 mg and Lipitor 40 mg will follow as needed Subjective Date of service: 11/09/21 Interval history: doing well no complaint today no numbness or weakness MRI brain and cervical MRI unremarkable b12#501,Folate#4.67 A1C#7.4 LDL#107 On ASA 81 mg alnd Lipitor 40 mg started on Multivitamins daily US carotid is <50% Bilateral Objective - Vital Sign Vital Signs - 12hr 11/08/21 11/09/21 11/09/21 22:04 00:23 05:14 Temperature 98.6 F Pulse Rate 41 L Respiratory 16 Rate Blood Pressure 106/48 106/50 O2 Sat by Pulse 100 97 Oximetry 11/09/21 07:26 Temperature 98.3 F Pulse Rate 40 L Respiratory 18 Rate Blood Pressure 111/56 O2 Sat by Pulse 99 Oximetry - General Apperance Constitutional: comfortable - EENT EENT: PERRL, mucous membranes moist - Respiratory Respiratory: lungs clear, rhonchi - Cardiovascular Cardiovascular: regular rate, normal S1, normal S2 Extremities: no peripheral edema bilat, no clubbing, cyanosis - Gastrointestinal Gastrointestinal: normoactive bowel sounds - Integumentary Integumentary: normal - Neurologic Cranial nerve examination: PERRL, EOMI, intact Speech examination: intact Detailed motor examination: grossly full strength in - Laboratory Findings CBC and BMP: 11/09/21 04:19 11/09/21 04:19 Abnormal Lab Findings: Abnormal Labs 11/07/21 11/07/21 11/07/21 22:30 22:48 22:48 RBC 5.42 H Hgb 9.1 L Hct MCV 57 L MCH 17 L RDW 19.2 H Seg Neutrophils % 80.9 H APTT 24.1 L Thrombin Time 14.1 L Sodium Carbon Dioxide BUN Glucose POC Glucose 244 H Hemoglobin A1c ALT Total Protein HDL Cholesterol Folate 11/07/21 11/08/21 11/08/21 22:48 08:26 08:26 RBC Hgb Hct MCV MCH RDW Seg Neutrophils % APTT Thrombin Time Sodium 136 L Carbon Dioxide 21 L BUN Glucose 259 H POC Glucose Hemoglobin A1c 7.4 H ALT 6 L Total Protein 9.4 H HDL Cholesterol 36 L Folate 11/08/21 11/08/21 11/08/21 11:32 13:48 16:21 RBC Hgb Hct MCV MCH RDW Seg Neutrophils % APTT Thrombin Time Sodium Carbon Dioxide BUN Glucose POC Glucose 222 H 248 H Hemoglobin A1c ALT Total Protein HDL Cholesterol Folate 4.67 L 11/08/21 11/09/21 11/09/21 20:55 04:19 04:19 RBC Hgb 7.7 L Hct 25.3 L MCV 57 L MCH 17 L RDW 19.2 H Seg Neutrophils % APTT Thrombin Time Sodium Carbon Dioxide BUN 22 H Glucose 226 H POC Glucose 275 H Hemoglobin A1c ALT Total Protein HDL Cholesterol Folate 11/09/21 07:53 RBC Hgb Hct MCV MCH RDW Seg Neutrophils % APTT Thrombin Time Sodium Carbon Dioxide BUN Glucose POC Glucose 152 H Hemoglobin A1c ALT Total Protein HDL Cholesterol Folate
[2021-11-09] MEDS: hydroCHLOROthiazide 12.5 MG CAP PO SCH (10:37)
[2021-11-09] MEDS: ASPIRIN 325 MG TAB PO SCH (10:37)
[2021-11-09] MEDS: metFORMIN XR 500MG TAB PO SCH (10:37)
[2021-11-09] MEDS: cloNIDine 0.1 MG TAB PO SCH ×2 (10:37→22:04)
[2021-11-09] MEDS: INSULIN LISPRO 100 UNIT/ML SUB-Q SCH ×4 (10:38→22:05)
[2021-11-09] MEDS: MULTIVITAMINS ,THERAPEUTIC TAB PO SCH (10:38)
[2021-11-10] MEDS: hydrALAZINE 25 MG TAB PO SCH ×3 (06:42→22:56)
[2021-11-10] MEDS: HEPARIN 5,000 UNIT/1 ML VIAL SUB-Q SCH ×3 (06:42→22:56)
[2021-11-10] MEDS: tiZANidine TAB 4 MG TAB PO PRN ×2 (06:42→17:58)
--- NOTE | 2021-11-10 10:04 | Progress Note ---
Assessment and Plan Assessment and Plan 41-year-old female with known of hypertension, obstructive sleep apnea and morbid obesity presenting to the emergency room today extremity numbness ,tingling with some left shoulder pain. Symptoms were said started about 6:30 PM earlier in the day. She admits that she has been having some lower back extremity weakness this. She denies any headache or dizziness, no nausea or vomiting and no abdominal pain. She denies any fever or chills, denies any urinary or fecal incontinence. - Patient Problems # Left arm numbness intermittent -with possible shoulder pain and dorsal pain -NIH#0 -Tinnel sign is positive at wrist -Ct brain is unremarkable -MRI brain is unremarkable done wo gd -US carotid is unremarkable -Echo is pending -started on ASA and Lipitor -LDL#107 -A1C#7.4 -B12 and Folate wnl -MRI cervical is unremarkable # Hx of gastic bypass surgery 2017 -Morbid obesity -Multi vitamins daily # left dorsal muscle spasm intermittent -No rash -No weakness -suggest neurontine 100 mg bid -Consider MRI dorsal spine with Gd am just to cover all possibilities !!!! # Morbid obesity with BMI of 40.0-44.9, adult -[facility] dietary consult. -Lifestyle modification encouraged. # Hypertensive urgency -Resume routine home medications and monitor vital signs closely. # Hyperglycemia -A1C#7.4 -Will monitor accucheck # Hyperlipidemia -LDL#107 -Lipitor 40 mg daily # Left side > right side numbness - MRI cervical is unremarkable done with gd -Brain MRI wo gd is unremarkable -B12 level#501 -Pt therapy -Brisk reflexes Bilateral no clonus # Possible CTS/ Neuropathy -Might need NCS as out pt. -with neurology follow up # DVT prophylaxis -Patient placed on subcutaneous heparin. # Full code status -Patient is full code. PLAN 1- Review echo--55-60%LVH 2- Better control of DM,A1C<7 3- Control BP<150/80 4-Multivitamis daily 5- Suggest MRI thoracic spine with gd am due to recurrent left dorsal pain, add neurontine 100 mg bid and Pt therapy 5- Neurology follow up 6- Maintain ASA 81 mg and Lipitor 40 mg will follow as needed Subjective Date of service: 11/10/21 Interval history: doing well no complaint today no numbness or weakness MRI brain and cervical MRI unremarkable b12#501,Folate#4.67 A1C#7.4 LDL#107 On ASA 81 mg alnd Lipitor 40 mg started on Multivitamins daily US carotid is <50% Bilateral Complaint of left dorsal spasm no rash no weakness Objective - Vital Sign Vital Signs - 12hr 11/09/21 11/09/21 11/09/21 22:00 22:02 22:04 Temperature Pulse Rate 44 L 44 L Respiratory Rate Blood Pressure 109/69 109/69 O2 Sat by Pulse 100 Oximetry 11/10/21 11/10/21 11/10/21 00:20 05:57 06:42 Temperature 98.0 F 98.5 F Pulse Rate 47 L 42 L Respiratory 18 18 Rate Blood Pressure 93/47 109/42 109/42 O2 Sat by Pulse 100 99 Oximetry 11/10/21 07:17 Temperature 98.6 F Pulse Rate 40 L Respiratory 14 Rate Blood Pressure 98/51 O2 Sat by Pulse 100 Oximetry - General Apperance Constitutional: comfortable - EENT EENT: PERRL, mucous membranes moist - Respiratory Respiratory: lungs clear, rhonchi - Cardiovascular Cardiovascular: regular rate, normal S1, normal S2 Extremities: no peripheral edema bilat, no clubbing, cyanosis - Gastrointestinal Gastrointestinal: normoactive bowel sounds - Integumentary Integumentary: normal - Neurologic Cranial nerve examination: PERRL, EOMI, intact Speech examination: intact Detailed motor examination: grossly full strength in, other (tender mid dorsal s pine radiate to left no rash , no focal weakness is noted) - Laboratory Findings CBC and BMP: 11/09/21 04:19 11/09/21 04:19 Abnormal Lab Findings: Abnormal Labs 11/07/21 11/07/21 11/07/21 22:30 22:48 22:48 RBC 5.42 H Hgb 9.1 L Hct MCV 57 L MCH 17 L RDW 19.2 H Seg Neutrophils % 80.9 H APTT 24.1 L Thrombin Time 14.1 L Sodium Carbon Dioxide BUN Glucose POC Glucose 244 H Hemoglobin A1c ALT Total Protein HDL Cholesterol Folate 11/07/21 11/08/21 11/08/21 22:48 08:26 08:26 RBC Hgb Hct MCV MCH RDW Seg Neutrophils % APTT Thrombin Time Sodium 136 L Carbon Dioxide 21 L BUN Glucose 259 H POC Glucose Hemoglobin A1c 7.4 H ALT 6 L Total Protein 9.4 H HDL Cholesterol 36 L Folate 11/08/21 11/08/21 11/08/21 11:32 13:48 16:21 RBC Hgb Hct MCV MCH RDW Seg Neutrophils % APTT Thrombin Time Sodium Carbon Dioxide BUN Glucose POC Glucose 222 H 248 H Hemoglobin A1c ALT Total Protein HDL Cholesterol Folate 4.67 L 11/08/21 11/09/21 11/09/21 20:55 04:19 04:19 RBC Hgb 7.7 L Hct 25.3 L MCV 57 L MCH 17 L RDW 19.2 H Seg Neutrophils % APTT Thrombin Time Sodium Carbon Dioxide BUN 22 H Glucose 226 H POC Glucose 275 H Hemoglobin A1c ALT Total Protein HDL Cholesterol Folate 11/09/21 11/09/21 11/09/21 07:53 11:09 17:21 RBC Hgb Hct MCV MCH RDW Seg Neutrophils % APTT Thrombin Time Sodium Carbon Dioxide BUN Glucose POC Glucose 152 H 161 H 147 H Hemoglobin A1c ALT Total Protein HDL Cholesterol Folate 11/09/21 11/10/21 20:59 07:18 RBC Hgb Hct MCV MCH RDW Seg Neutrophils % APTT Thrombin Time Sodium Carbon Dioxide BUN Glucose POC Glucose 178 H 164 H Hemoglobin A1c ALT Total Protein HDL Cholesterol Folate
[2021-11-10] MEDS: GABAPENTIN 100 MG CAP PO SCH ×2 (10:27→22:56)
[2021-11-10] MEDS: hydroCHLOROthiazide 12.5 MG CAP PO SCH (10:28)
[2021-11-10] MEDS: metFORMIN XR 500MG TAB PO SCH (10:28)
[2021-11-10] MEDS: cloNIDine 0.1 MG TAB PO SCH ×2 (10:28→22:52)
[2021-11-10] MEDS: MULTIVITAMINS ,THERAPEUTIC TAB PO SCH (10:28)
[2021-11-10] MEDS: INSULIN LISPRO 100 UNIT/ML SUB-Q SCH ×4 (10:28→22:58)
[2021-11-10] MEDS: ASPIRIN 325 MG TAB PO SCH (10:28)
--- NOTE | 2021-11-10 10:35 | Consultation ---
History of Present Illness Consult date: 11/10/21 History of present illness: 41-year-old obese -[place] female with a history of hypertension obesity and sleep apnea presenting with some shoulder pain and tingling. Patient denies any cardiac history. Past History Past Medical History: hypertension Past Surgical History: Social history: no significant social history Family history: no significant family history Medications and Allergies Allergies Allergy/AdvReac Type Severity Reaction Status Date / Time amlodipine Allergy Swelling Verified 11/07/21 22:11 lisinopril Allergy Swelling Verified 11/07/21 22:11 Home Medications Medication Instructions Recorded Confirmed Last Taken Type cloNIDine [Catapres] 0.1 mg PO Q12HR #60 tablet 01/29/14 11/09/21 Unknown Rx labetaloL [Labetalol 200mg TAB] 200 mg PO BID #60 tablet 01/29/14 11/09/21 Unknown Rx Active Meds: Active Medications Acetaminophen (Acetaminophen 325 Mg Tab) 650 mg PO Q4H PRN PRN Reason: Pain, Mild (1-3) Last Admin: 11/09/21 22:07 Dose: 650 mg Aspirin (Aspirin 325 Mg Tab) 325 mg PO QDAY [facility] Last Admin: 11/10/21 10:28 Dose: 325 mg Atorvastatin Calcium (Atorvastatin 40 Mg Tab) 40 mg PO QHS [facility] Last Admin: 11/09/21 22:02 Dose: 40 mg Bisacodyl (Bisacodyl 10 Mg Rect Supp) 10 mg CA QDAY PRN PRN Reason: Constipation Clonidine HCl (Clonidine 0.1 Mg Tab) 0.1 mg PO Q12HR [facility] Last Admin: 11/10/21 10:28 Dose: 0.1 mg Dextrose (Dextrose 50% In Water (25gm) 50 Ml Syringe) 50 ml IV Q30MIN PRN; Protocol PRN Reason: Hypoglycemia Gabapentin (Gabapentin 100 Mg Cap) 100 mg PO BID [facility] Last Admin: 11/10/21 10:27 Dose: 100 mg Heparin Sodium (Porcine) (Heparin 5,000 Unit/1 Ml Vial) 5,000 unit SUB-Q Q8HR [facility] Last Admin: 11/10/21 06:42 Dose: 5,000 unit Hydralazine HCl (Hydralazine 20 Mg/1 Ml Inj) 10 mg IV Q6H PRN PRN Reason: Blood Pressure Hydralazine HCl (Hydralazine 25 Mg Tab) 25 mg PO Q8HR [facility] Last Admin: 11/10/21 06:42 Dose: 25 mg Hydrochlorothiazide (Hydrochlorothiazide 12.5 Mg Cap) 12.5 mg PO QDAY [facility] Last Admin: 11/10/21 10:28 Dose: 12.5 mg Insulin Human Lispro (Insulin Lispro 100 Unit/Ml) 0 unit SUB-Q ACHS [facility]; Protocol Last Admin: 11/10/21 10:28 Dose: 1 unit Magnesium Hydroxide (Magnesium Hydroxide (Mom) Oral Liqd Udc) 30 ml PO Q4H PRN PRN Reason: Constipation Metformin HCl (Metformin Xr 500mg Tab) 500 mg PO QDDIAB [facility] Last Admin: 11/10/21 10:28 Dose: 500 mg Metoclopramide HCl (Metoclopramide 10 Mg Tab) 10 mg PO Q6H PRN PRN Reason: Nausea And Vomiting Morphine Sulfate (Morphine 2 Mg/1 Ml Inj) 2 mg IV Q4H PRN PRN Reason: Pain, Moderate (4-6) Last Admin: 11/08/21 12:10 Dose: 2 mg Morphine Sulfate (Morphine 4 Mg/1 Ml Inj) 4 mg IV Q4H PRN PRN Reason: Pain , Severe (7-10) Multivitamins (Multivitamins ,Therapeutic Tab) 1 each PO QDAY [facility] Last Admin: 11/10/21 10:28 Dose: 1 each Ondansetron HCl (Ondansetron 4 Mg/2 Ml Inj) 4 mg IV Q8H PRN PRN Reason: Nausea And Vomiting Promethazine HCl (Promethazine 25 Mg Rect Supp) 25 mg CA Q6H PRN PRN Reason: Nausea And Vomiting Sodium Chloride (Sodium Chloride 0.9% 10 Ml Flush Syringe) 10 ml IV BID [facility] Last Admin: 11/10/21 10:28 Dose: 10 ml Sodium Chloride (Sodium Chloride 0.9% 10 Ml Flush Syringe) 10 ml IV PRN PRN PRN Reason: LINE FLUSH Tizanidine HCl (Tizanidine Tab 4 Mg Tab) 4 mg PO Q8H PRN PRN Reason: Muscle Spasm Last Admin: 11/10/21 06:42 Dose: 4 mg Review of Systems Constitutional: weight gain, weakness, malaise, no fever, no chills Ears, nose, mouth and throat: no deferred, no ear pain, no ear discharge, no tinnitis Cardiovascular: no chest pain, no orthopnea, no palpitations, no lightheadedness, no shortness of breath Gastrointestinal: no abdominal pain, no nausea, no vomiting Genitourinary Female: no urinary frequency, no urgency, no stress incontinence Rectal: no pain, no incontinence Musculoskeletal: neck stiffness, arm numbness/tingling, no neck pain Integumentary: no rash, no pruritis, no redness, no sores Neurological: no paralysis, no weakness, no parathesias Endocrine: no cold intolerance, no heat intolerance, no polyphagia, no excessive thirst Hematologic/Lymphatic: no easy bruising, no easy bleeding Allergic/Immunologic: no urticaria, no allergic rhinitis, no wheezing Physical Examination Vital Signs Temp Pulse Resp BP Pulse Ox 98.4 F 71 20 187/107 97 11/07/21 22:08 11/07/21 22:08 11/07/21 22:08 11/07/21 22:08 11/07/21 22:08 General appearance: no acute distress, obese HEENT: Positive: PERRL, Normocephaly, Sinus Tenderness Neck: Positive: neck supple, trachea midline. Negative: JVD/HJR Cardiac: Positive: Regular Rate, S1/S2. Negative: S3, S4 Lungs: Positive: clear to auscultation, No Wheeze, Rales, Rhonchi Neuro: Positive: Grossly Intact Abdomen: Positive: Unremarkable, Soft Skin: Negative: Rash Extremities: Absent: edema Results 11/09/21 04:19 11/09/21 04:19 EKG interpretations - Telemetry EKG Rhythm: Sinus Rhythm - EKG Sinus rhythms and dysrhythmias: sinus rhythm Assessment and Plan 1. Arm numbness and tingling sensation 2. Essential hypertension 3. Obesity unspecified Echocardiogram shows mild concentric LVH with normal global and regional left ventricular systolic function LVEF is 55 to 60%. EKG shows sinus rhythm normal electrical axis and within normal limits. Labs are normal Plan. Patient is currently stable her symptoms are noncardiac. Neurologic evaluation in progress.
--- NOTE | 2021-11-10 17:22 | Progress Note ---
Assessment and Plan Assessment and Plan - Patient Problems (1) Bradycardia--persistent Current Visit: Yes Status: Acute Plan to address problem: Asymptomatic Cardiac consult (2) Hypertensive urgency [id number] Visit: Yes Status: Acute Plan to address problem: Blood pressure has improved (3) Cervical Radiculopathy No left arm numbness MRI C-spine normal (4) T2DM Current Visit: Yes Status: Acute Plan to address problem: Will monitor accucheck Patient has T2DM Initiated on metformin and Tradjenta Diet education (5) DVT prophylaxis Current Visit: Yes Status: Acute Plan to address problem: Patient placed on subcutaneous heparin. (6) Full code status Current Visit: Yes Status: Acute Plan to address problem: Patient is full code. Subjective Date of service: 11/10/21 Principal diagnosis: Hypertensive emergency Interval history: 41-year-old female with known of hypertension, obstructive sleep apnea and morbid obesity presenting to the emergency room today extremity numbness ,tingling with some left shoulder pain. Symptoms were said started about 6:30 PM earlier in the day. She admits that she has been having some lower back extremity weakness this. She denies any headache or dizziness, no nausea or vomiting and no abdominal pain. She denies any fever or chills, denies any urinary or fecal incontinence. 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 Upon arrival in the emergency room today, blood pressure was elevated with systolic in the 170s and diastolic in the 80s. Work-up in the emergency room today, lab is significant hyperglycemia of 259. CT scan of the head was unremarkable. 11/09/2021 Patient comfortable heart rate persistently in 40s 11/10/2021 Bradycardia to be addressed by cardiology tomorrow Objective - Constitutional Vitals: Vital Signs - 12hr 11/10/21 11/10/21 11/10/21 05:57 06:42 07:17 Temperature 98.5 F 98.6 F Pulse Rate 42 L 40 L Respiratory 18 14 Rate Blood Pressure 109/42 109/42 98/51 O2 Sat by Pulse 99 100 Oximetry 11/10/21 11/10/21 11/10/21 10:06 11:18 15:42 Temperature Pulse Rate 40 L 40 L 48 L Respiratory 16 15 Rate Blood Pressure 99/44 105/58 O2 Sat by Pulse 99 100 100 Oximetry General appearance: Present: no acute distress, well-nourished - EENT Eyes: PERRL, EOM intact ENT: hearing intact, clear oral mucosa Ears: bilateral: normal - Neck Neck: supple, normal ROM - Respiratory Respiratory effort: normal Respiratory: bilateral: CTA - Breasts Breasts: normal - Cardiovascular Heart rate: 40 Rhythm: regular Heart Sounds: Present: S1 & S2. Absent: gallop, rub Extremities: pulses intact, No edema, normal color, Full ROM - Gastrointestinal General gastrointestinal: Present: soft, non-tender, non-distended, normal bowel sounds - Genitourinary Female genitourinary: normal - Integumentary Integumentary: clear, warm, dry - Musculoskeletal Musculoskeletal: 1, strength equal bilaterally - Neurologic Neurologic: moves all extremities - Psychiatric Psychiatric: memory intact, appropriate mood/affect, intact judgment & insight - Labs CBC & Chem 7: 11/09/21 04:19 11/09/21 04:19 Labs: Abnormal lab results 11/09/21 11/09/21 11/10/21 Range/Units 17:21 20:59 07:18 POC Glucose 147 H 178 H 164 H (70-105) mg/dL 11/10/21 11/10/21 Range/Units 11:19 15:41 POC Glucose 146 H 135 H (70-105) mg/dL HEART Score - HEART Score Troponin: Troponin T < 0.010 ng/mL (0.00-0.029) 11/07/21 22:48
[2021-11-11] MEDS: hydrALAZINE 25 MG TAB PO SCH ×3 (06:52→22:40)
[2021-11-11] MEDS: MORPHINE 2 MG/1 ML INJ IV PRN ×2 (06:52→20:39)
[2021-11-11] MEDS: HEPARIN 5,000 UNIT/1 ML VIAL SUB-Q SCH ×3 (06:52→22:40)
[2021-11-11] MEDS: tiZANidine TAB 4 MG TAB PO PRN ×2 (07:37→22:40)
[2021-11-11] MEDS: INSULIN LISPRO 100 UNIT/ML SUB-Q SCH ×4 (08:35→22:47)
[2021-11-11] MEDS: MULTIVITAMINS ,THERAPEUTIC TAB PO SCH (11:11)
[2021-11-11] MEDS: cloNIDine 0.1 MG TAB PO SCH ×2 (11:11→11:12)
[2021-11-11] MEDS: GABAPENTIN 100 MG CAP PO SCH ×2 (11:11→22:40)
[2021-11-11] MEDS: ASPIRIN 325 MG TAB PO SCH (11:11)
[2021-11-11] MEDS: hydroCHLOROthiazide 12.5 MG CAP PO SCH (11:11)
[2021-11-11] MEDS: metFORMIN XR 500MG TAB PO SCH (11:11)
--- NOTE | 2021-11-11 11:41 | Progress Note ---
Assessment and Plan 1. Abnormal EKG (sick sinus syndrome) 2. Arm numbness and tingling sensation 3. Essential hypertension 4. Obesity unspecified EKG shows periods of sinus bradycardia with A-V dissociation and periods of junctional escape rhythm. Echocardiogram shows mild concentric LVH with normal global and regional left ventricular systolic function LVEF is 55 to 60%. EKG shows sinus rhythm normal electrical axis and within normal limits. Labs are normal Plan. Patient is asymptomatic and hemodynamically stable abnormal EKG suggest underlying conduction system disease. Check TSH level check echocardiogram. Treadmill stress test to evaluate heart rate response to exercise Subjective Date of service: 11/11/21 Principal diagnosis: Hypertensive emergency Interval history: No cardiac symptoms complains of back pain. Objective Vital Signs Temp Pulse Resp BP Pulse Ox 11/11/21 10:00 80 99 11/11/21 07:20 98.1 F 47 L 145/64 100 11/11/21 06:52 20 11/11/21 06:45 62 175/86 96 11/11/21 04:26 98.5 F 44 L 20 128/52 100 11/11/21 00:30 98.7 F 44 L 20 116/48 99 11/10/21 23:16 98 11/10/21 22:56 43 L 85/39 11/10/21 22:52 43 L 85/39 11/10/21 22:07 43 L 20 112/58 100 11/10/21 22:00 43 L 99 11/10/21 19:17 98.3 F 43 L 20 85/39 100 11/10/21 15:42 48 L 15 105/58 100 - Physical Examination General: Appears Well, Other (obese) HEENT: Positive: PERRL, Normocephaly, Sinus Tenderness Neck: Positive: neck supple, trachea midline. Negative: JVD/HJR Cardiac: Positive: Regular Rate, S1/S2, PMI, Laterally Displaced. Negative: S3, S4 Lungs: Positive: clear to auscultation, No Wheeze, Rales, Rhonchi Neuro: Positive: Grossly Intact Abdomen: Positive: Unremarkable, Soft Skin: Negative: Rash Extremities: Absent: edema - EKG Sinus rhythms and dysrhythmias: sinus rhythm
--- NOTE | 2021-11-11 11:50 | Progress Note ---
Assessment and Plan Assessment and plan: #Asymptomatic Bradycardia--persistent -plan for stress test tomorrow -currently on no sid blocking agents, will avoid -Cardiology following, assistance appreciated #Hypertensive urgency-resolved #Hypotension -patient presented with elevated BP, now with hypotension -clonidine discontinued -continue with HCTZ and hydralazine at home doses #Cervical Radiculopathy-improving -patient continues to have pain but it is improving; no longer having numbness in arm and leg -MRI C-spine normal -MRI thoracic spine pending #Type II Diabetes -A1C 7.4% -continue metformin and accuchecks -glucose relatively controlled while inpatient #Advanced care planning -Disease education conducted, care plan discussed, diagnoses discussed, prognosis discussed, and patient acknowledges understanding with care plan -Time: +30 min History Interval history: Patient reports back pain flare overnight. She was unable to receive pain relief medications due to hypotension. She received muscle relaxant 2 hours ago and noticed improvement in her pain. She has no complaints at this time. Hospitalist Physical - Physical exam Narrative exam: GENERAL: Well-developed well-nourished. In no acute distress. HEENT: Normocephalic. Atraumatic. CHEST/LUNGS: CTAB on room air HEART/CARDIOVASCULAR: RRR. No murmur, rubs or gallops appreciated. ABDOMEN: +BS. NT/ND. NEURO: No focal motor deficit. Follows all commands. EXTREMITIES: No cyanosis, clubbing or edema. PSYCH: Cooperative. - Constitutional Vitals: Temp Pulse Resp BP Pulse Ox 97.9 F 48 L 20 92/43 98 11/11/21 11:36 11/11/21 11:36 11/11/21 06:52 11/11/21 11:36 11/11/21 11:36 General appearance: Present: no acute distress, well-nourished HEART Score - HEART Score Troponin: Troponin T < 0.010 ng/mL (0.00-0.029) 11/07/21 22:48 Results - Labs CBC & Chem 7: 11/09/21 04:19 11/09/21 04:19 Labs: Laboratory Last Values WBC 9.5 K/mm3 (4.5-11.0) 11/09/21 04:19 RBC 4.47 M/mm3 (3.65-5.03) 11/09/21 04:19 Hgb 7.7 gm/dl (10.1-14.3) L 11/09/21 04:19 Hct 25.3 % (30.3-42.9) L 11/09/21 04:19 MCV 57 fl (79-97) L 11/09/21 04:19 MCH 17 pg (28-32) L 11/09/21 04:19 MCHC 31 % (30-34) 11/09/21 04:19 RDW 19.2 % (13.2-15.2) H 11/09/21 04:19 Plt Count 343 K/mm3 (140-440) 11/09/21 04:19 Lymph % (Auto) 28.1 % (13.4-35.0) 11/09/21 04:19 [place] % (Auto) 7.3 % (0.0-7.3) 11/09/21 04:19 Eos % (Auto) 0.1 % (0.0-4.3) 11/09/21 04:19 Baso % (Auto) 0.3 % (0.0-1.8) 11/09/21 04:19 Lymph # (Auto) 2.7 K/mm3 (1.2-5.4) 11/09/21 04:19 [place] # (Auto) 0.7 K/mm3 (0.0-0.8) 11/09/21 04:19 Eos # (Auto) 0.0 K/mm3 (0.0-0.4) 11/09/21 04:19 Baso # (Auto) 0.0 K/mm3 (0.0-0.1) 11/09/21 04:19 Seg Neutrophils % 64.2 % (40.0-70.0) 11/09/21 04:19 Seg Neutrophils # 6.1 K/mm3 (1.8-7.7) 11/09/21 04:19 PT 13.2 Sec. (12.2-14.9) 11/07/21 22:48 INR 0.91 (0.87-1.13) 11/07/21 22:48 APTT 24.1 Sec. (24.2-36.6) L 11/07/21 22:48 Thrombin Time 14.1 Sec. (15.1-19.6) L 11/07/21 22:48 Sodium 139 mmol/L (137-145) 11/09/21 04:19 Potassium 4.1 mmol/L (3.6-5.0) 11/09/21 04:19 Chloride 101.7 mmol/L (98-107) 11/09/21 04:19 Carbon Dioxide 23 mmol/L (22-30) 11/09/21 04:19 Anion Gap 18 mmol/L 11/09/21 04:19 BUN 22 mg/dL (7-17) H 11/09/21 04:19 Creatinine 1.0 mg/dL (0.6-1.2) 11/09/21 04:19 Estimated GFR > 60 ml/min 11/09/21 04:19 BUN/Creatinine Ratio 22 % 11/09/21 04:19 Glucose 226 mg/dL (65-100) H 11/09/21 04:19 POC Glucose 171 mg/dL (70-105) H 11/11/21 11:35 Hemoglobin A1c 7.4 % (4-6) H 11/08/21 08:26 Calcium 9.4 mg/dL (8.4-10.2) 11/09/21 04:19 Total Bilirubin 0.50 mg/dL (0.1-1.2) 11/07/21 22:48 AST 20 units/L (5-40) 11/07/21 22:48 ALT 6 units/L (7-56) L 11/07/21 22:48 Alkaline Phosphatase 84 units/L (35-129) 11/07/21 22:48 Total Creatine Kinase 123 units/L (30-135) 11/07/21 22:48 CK-MB (CK-2) 1.3 ng/mL (0.0-4.0) 11/07/21 22:48 CK-MB (CK-2) Rel Index 1.0 (0-4) 11/07/21 22:48 Troponin T < 0.010 ng/mL (0.00-0.029) 11/07/21 22:48 Total Protein 9.4 g/dL (6.3-8.2) H 11/07/21 22:48 Albumin 4.5 g/dL (3.9-5) 11/07/21 22:48 Albumin/Globulin Ratio 0.9 % 11/07/21 22:48 Triglycerides 104 mg/dL (2-149) 11/08/21 08:26 Cholesterol 160 mg/dL (50-199) 11/08/21 08:26 LDL Cholesterol Direct 107 mg/dL (50-130) 11/08/21 08:26 HDL Cholesterol 36 mg/dL (40-59) L 11/08/21 08:26 Cholesterol/HDL Ratio 4.44 % 11/08/21 08:26 Vitamin B12 501.8 pg/mL (211-911) 11/08/21 13:48 Folate 4.67 ng/mL (7.3-26.0) L 11/08/21 13:48 TSH 0.409 mlU/mL (0.270-4.200) 11/08/21 08:26 HCG, Quant < 2 mIU/mL (0-4) 11/07/21 22:48 Plasma/Serum Alcohol < 0.01 % (0-0.07) 11/07/21 22:48 Preston/IV: Voiding Method Toilet Active Medications - Current Medications Current Medications: Generic Name Dose Route Start Last Admin Trade Name Freq PRN Reason Stop Dose Admin Acetaminophen 650 mg 11/08/21 02:17 11/09/21 22:07 Acetaminophen 325 Mg Tab PO 650 mg Q4H PRN Administration Pain, Mild (1-3) Aspirin 325 mg 11/08/21 10:00 11/11/21 11:11 Aspirin 325 Mg Tab PO 325 mg QDAY JAIRO Administration Atorvastatin Calcium 40 mg 11/08/21 22:00 11/10/21 22:56 Atorvastatin 40 Mg Tab PO 40 mg QHS JAIRO Administration Bisacodyl 10 mg 11/08/21 02:17 Bisacodyl 10 Mg Rect Supp SD QDAY PRN Constipation Dextrose 50 ml 11/08/21 08:30 Dextrose 50% In Water (25gm) 50 Ml Syringe IV Q30MIN PRN Hypoglycemia Protocol Gabapentin 100 mg 11/10/21 11:00 11/11/21 11:11 Gabapentin 100 Mg Cap PO 100 mg BID JAIRO Administration Heparin Sodium (Porcine) 5,000 unit 11/08/21 09:00 11/11/21 06:52 Heparin 5,000 Unit/1 Ml Vial SUB-Q 5,000 unit Q8HR JAIRO Administration Hydralazine HCl 10 mg 11/08/21 09:00 Hydralazine 20 Mg/1 Ml Inj IV Q6H PRN Blood Pressure Hydralazine HCl 25 mg 11/08/21 09:00 11/11/21 06:52 Hydralazine 25 Mg Tab PO 25 mg Q8HR JAIRO Administration Hydrochlorothiazide 12.5 mg 11/08/21 10:00 11/11/21 11:11 Hydrochlorothiazide 12.5 Mg Cap PO 12.5 mg QDAY JAIRO Administration Insulin Human Lispro 0 unit 11/08/21 11:30 11/11/21 08:35 Insulin Lispro 100 Unit/Ml SUB-Q Not Given ACHS [facility] Protocol Magnesium Hydroxide 30 ml 11/08/21 02:17 Magnesium Hydroxide (Mom) Oral Liqd Udc PO Q4H PRN Constipation Metformin HCl 500 mg 11/08/21 13:00 11/11/21 11:11 Metformin Xr 500mg Tab PO 500 mg QDDIAB JAIRO Administration Metoclopramide HCl 10 mg 11/08/21 02:17 Metoclopramide 10 Mg Tab PO Q6H PRN Nausea And Vomiting Morphine Sulfate 2 mg 11/08/21 02:17 11/11/21 06:52 Morphine 2 Mg/1 Ml Inj IV 2 mg Q4H PRN Administration Pain, Moderate (4-6) Morphine Sulfate 4 mg 11/08/21 02:17 Morphine 4 Mg/1 Ml Inj IV Q4H PRN Pain , Severe (7-10) Multivitamins 1 each 11/08/21 14:00 11/11/21 11:11 Multivitamins ,Therapeutic Tab PO 1 each QDAY JAIRO Administration Ondansetron HCl 4 mg 11/08/21 02:17 Ondansetron 4 Mg/2 Ml Inj IV Q8H PRN Nausea And Vomiting Promethazine HCl 25 mg 11/08/21 02:17 Promethazine 25 Mg Rect Supp SD Q6H PRN Nausea And Vomiting Sodium Chloride 10 ml 11/08/21 10:00 11/11/21 11:11 Sodium Chloride 0.9% 10 Ml Flush Syringe IV 10 ml BID JAIRO Administration Sodium Chloride 10 ml 11/08/21 02:17 Sodium Chloride 0.9% 10 Ml Flush Syringe IV PRN PRN LINE FLUSH Tizanidine HCl 4 mg 11/08/21 16:53 11/11/21 07:37 Tizanidine Tab 4 Mg Tab PO 4 mg Q8H PRN Administration Muscle Spasm Nutrition/Malnutrition Assess - Dietary Evaluation Nutrition/Malnutrition Findings: Nutrition Notes Start: 11/08/21 12:42 Freq: Status: Active Protocol: Document 11/08/21 12:42 SUNI (Rec: 11/08/21 12:55 SUNI [id number]) Nutrition Notes Need for Assessment generated from: MD Order,Education Initial or Follow up Brief Note Current Diagnosis Hypertension Other Pertinent Diagnosis L-UE Numbness, Radiculopathy, Hyperglycemia. Current Diet Cardiac Diet (since B 11/08). 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 No reports available on Pt's PO intake of meals at the time , will assess at F/U. Pt is on Room Air, O2 saturation @ 99%, acdcording to Physical Assessment History notes. Pt is a former diabetic, stopped tratment after Gastric Sleeve sugery few years ago, (current HbA1c 7.4%), according to Event note. Pt still in critical condition , not a candidate for Nutrition Education at the time, will assess feasibility on F/U. Percent of energy/protein needs met: Prescribed Cardiac Diet provides for energy/protein needs (2,230 Kcal/85 g) during LOS. Nutrition Intervention Follow-Up By: 11/15/21 Additional Comments Nutrition education will be provided on F/U, if feasible. Continue monitoring food tolerance, %PO intake of meals , and BM.
[2021-11-11] MEDS: ACETAMINOPHEN 325 MG TAB PO PRN (16:32)
[2021-11-12] MEDS: MORPHINE 2 MG/1 ML INJ IV PRN ×3 (07:10→20:48)
[2021-11-12] MEDS: HEPARIN 5,000 UNIT/1 ML VIAL SUB-Q SCH ×3 (07:12→21:10)
[2021-11-12] MEDS: hydrALAZINE 25 MG TAB PO SCH ×2 (07:13→13:35)
[2021-11-12] MEDS ORDERED: REGADENOSON 0.4 MG/5 ML INJ IV ONE (07:27)
[2021-11-12] MEDS: metFORMIN XR 500MG TAB PO SCH (07:45)
[2021-11-12] MEDS: INSULIN LISPRO 100 UNIT/ML SUB-Q SCH ×4 (08:26→23:25)
--- NOTE | 2021-11-12 09:44 | Progress Note ---
Assessment and Plan 1. Abnormal EKG (sick sinus syndrome) 2. Arm numbness and tingling sensation 3. Essential hypertension 4. Obesity unspecified EKG shows periods of sinus bradycardia with A-V dissociation and periods of junctional escape rhythm. Echocardiogram shows mild concentric LVH with normal global and regional left ventricular systolic function LVEF is 55 to 60%. EKG shows sinus rhythm normal electrical axis and within normal limits. Labs are normal Plan. Patient is asymptomatic and hemodynamically stable abnormal EKG suggest underlying conduction system disease. Check TSH level check echocardiogram. Treadmill stress test to evaluate heart rate response to exercise Patient to be electively evaluated by electrophysiology. Subjective Date of service: 11/12/21 Principal diagnosis: Hypertensive emergency Interval history: No cardiac symptoms complains of back pain. Objective Vital Signs Temp Pulse Resp Resp BP Pulse Ox 11/12/21 08:23 98 11/12/21 08:22 56 L 11/12/21 07:55 48 L 98 11/12/21 07:54 98.2 F 18 128/59 11/12/21 07:13 52 L 123/55 11/12/21 07:10 20 11/12/21 04:33 99.1 F 53 L 16 122/63 100 11/11/21 23:08 98.5 F 55 L 16 127/67 100 11/11/21 22:40 64 159/64 11/11/21 22:38 20 159/76 11/11/21 22:00 59 L 20 98 11/11/21 21:33 100 11/11/21 21:09 20 11/11/21 20:39 22 11/11/21 19:15 98.6 F 65 16 136/84 98 11/11/21 16:37 98.0 F 45 L 131/70 100 11/11/21 11:36 97.9 F 48 L 92/43 98 11/11/21 10:00 80 99 - Physical Examination General: Appears Well, Other (obese) HEENT: Positive: PERRL, Normocephaly, Sinus Tenderness Neck: Positive: neck supple, trachea midline. Negative: JVD/HJR Cardiac: Positive: Regular Rate, S1/S2, PMI, Laterally Displaced. Negative: S3, S4 Lungs: Positive: clear to auscultation, No Wheeze, Rales, Rhonchi Neuro: Positive: Grossly Intact, No Lateralizing Findings Abdomen: Positive: Unremarkable, Soft Skin: Negative: Rash Extremities: Absent: edema - EKG Sinus rhythms and dysrhythmias: sinus rhythm
--- NOTE | 2021-11-12 10:17 | Event Note ---
Date: 11/12/21 Patient here for TMST and MPI but she is in severe back pain and cannot walk on treadmill and EKG shows sinus tachycardia probably due to pain. Her test was changed to Lexiscan.
--- NOTE | 2021-11-12 12:42 | Nuclear Medicine Report ---
APPROVED REPORT Exam: Nuclear Stress Test Indication: [facility] Ht: 5 ft 4 in Wt: 238 lbs BSA: 2.11 m2 HR: 55 bpmBP: 150/86 mmHgBMI: 40.84 Rhythm: Sinus Bradycardia Stress Test Details Stress Test: Pharmacologic stress testing performed using 0.4 mg of regadenoson per 5 mL given IV over 10 seconds. Reason for pharmacologic stress test: physical limitation. HR Resting HR: 54 bpm Max HR Achieved: 130 bpm Max Heart Rate (APMHR): 177.232912 bpm Target HR (85% APMHR): 150.509574 bpm % of APMHR: 73.45 Recovery HR: 74 bpm HR response to stress: Normal HR response to stress BP Resting BP: 145/87 mmHg Max BP: 195/115 mmHg Recovery BP: 148/102 mmHg BP response to stress: Abnormal hypertensive response to stress. ECG Resting ECG: Sinus Bradycardia Stress ECG: Sinus Tachycardia Arrhythmia: None Recovery ECG: Sinus Rhythm Recovery Arrhythmia: None Clinical Reason for Termination: Completed protocol Stress Symptoms: None NM EXAM: Myocardial Perfusion REST/STRESS Imaging Protocol: Rest Tc-99m/Stress Tc-99m 1 day Resting Data Rest SPECT myocardial perfusion imaging was performed in supine position 45 minutes following the intravenous injection of 10 mCi of Tc-99m Myoview. Time of rest injection: 0700 Date: 11/12/2021 Pharmacologic Stress Pharmacologic stress test was performed by injecting Regadenoson 0.4 mg IV push followed by the intravenous injection of 28 mCi of Tc-99m Myoview. Time of stress injection: 10:15:58 Date: 11/12/2021 Gated Stress SPECT was performed 30 minutes after stress injection. The images were gated to evaluate regional wall motion and calculate left ventricular ejection fraction. Study Data TID = 0.95. Perfusion Wall Motion Nomal left ventricular size and global systolic fubction. LVEF 64% Nuclear Conclusion ECG Findings: negative for ischemia Clinical Findings: negative for ischemia Nuclear Findings: negative for ischemia Left Ventricular Function: normal Risk Study: low Normal study. No scintigraphic evidence for myocardial ischemia or scar. Normal left ventricular size and function with no regional wall motion abnormalities. No prior study available for comparison.
[2021-11-12] MEDS: tiZANidine TAB 4 MG TAB PO PRN ×2 (13:35→23:36)
[2021-11-12] MEDS: hydroCHLOROthiazide 12.5 MG CAP PO SCH (13:35)
[2021-11-12] MEDS: ASPIRIN 325 MG TAB PO SCH (13:35)
[2021-11-12] MEDS: MULTIVITAMINS ,THERAPEUTIC TAB PO SCH (13:35)
[2021-11-12] MEDS: GABAPENTIN 100 MG CAP PO SCH ×2 (13:35→21:00)
--- NOTE | 2021-11-12 15:37 | Progress Note ---
Assessment and Plan Assessment and plan: #Asymptomatic Bradycardia--persistent -Nuclear stress test (11/12/2021) unremarkable for reversible ischemia or scar -currently on no sid blocking agents, will avoid -Neurology consulted; appreciate recs #Hypertensive urgency-resolved #Hypotensionresolved - home medications: Hydrochlorothiazide 25 mg twice daily, p.o. hydralazine 10 mg 3 times daily - current medications: Hydrochlorothiazide 12.5 mg daily, nifedipine 30 mg daily - SBP goal <160 and DBP goal <90 while inpatient - continue to monitor #Cervical Radiculopathy-improving -patient continues to have pain but it is improving; no longer having numbness in arm and leg -MRI C-spine unremarkable -MRI thoracic spine pending read. Ordering right upper quadrant ultrasound as the patient described similar symptoms/pain with her gallstones at an earlier date. #Non-insulin dependent type II diabetes mellitus - hemoglobin A1c: 7.4 - home regimen: Metformin 500 mg daily - current regimen: - blood glucose goal 140-180 while inpatient - continue to monitor #Morbid obesity #Weight loss counseling #Exercise counseling - BMI 40.9 - Counseled patient on the importance of weight loss, incorporating exercise, and dietary changes (lean meats, fresh fruits and vegetables, and water intake). Patient expresses understanding. - Time: +15 min #Advanced care planning -Disease education conducted, care plan discussed, diagnoses discussed, prognosis discussed, and patient acknowledges understanding with care plan -Time: +30 min Disposition Plan: Continue medical management Total Time Spent with Patient (Minutes): 45 minutes History Interval history: No acute events overnight. Hospitalist Physical - Constitutional Vitals: Temp Pulse Resp BP Pulse Ox 98.1 F 59 L 18 152/74 98 11/12/21 13:54 11/12/21 13:55 11/12/21 13:54 11/12/21 13:54 11/12/21 10:16 General appearance: Present: mild distress, well-nourished, obese - EENT Eyes: Present: PERRL, EOM intact ENT: hearing intact, clear oral mucosa, dentition normal - Neck Neck: Present: supple, normal ROM - Respiratory Respiratory effort: normal Respiratory: bilateral: CTA - Cardiovascular Rhythm: regular Heart Sounds: Present: S1 & S2 - Extremities Extremities: no ischemia, pulses intact, pulses symmetrical, No edema, normal temperature, normal color Extremity abnormal: tenderness (Significant tenderness of spine) Peripheral Pulses: within normal limits - Abdominal General gastrointestinal: soft, non-tender, non-distended, normal bowel sounds - Integumentary Integumentary: Present: clear, warm, dry - Psychiatric Psychiatric: appropriate mood/affect, cooperative - Neurologic Neurologic: CNII-XII intact - Allied Health Allied health notes reviewed: nursing HEART Score - HEART Score Troponin: Troponin T < 0.010 ng/mL (0.00-0.029) 11/07/21 22:48 Results - Labs CBC & Chem 7: 11/09/21 04:19 11/09/21 04:19 Labs: Laboratory Last Values WBC 9.5 K/mm3 (4.5-11.0) 11/09/21 04:19 RBC 4.47 M/mm3 (3.65-5.03) 11/09/21 04:19 Hgb 7.7 gm/dl (10.1-14.3) L 11/09/21 04:19 Hct 25.3 % (30.3-42.9) L 11/09/21 04:19 MCV 57 fl (79-97) L 11/09/21 04:19 MCH 17 pg (28-32) L 11/09/21 04:19 MCHC 31 % (30-34) 11/09/21 04:19 RDW 19.2 % (13.2-15.2) H 11/09/21 04:19 Plt Count 343 K/mm3 (140-440) 11/09/21 04:19 Lymph % (Auto) 28.1 % (13.4-35.0) 11/09/21 04:19 [place] % (Auto) 7.3 % (0.0-7.3) 11/09/21 04:19 Eos % (Auto) 0.1 % (0.0-4.3) 11/09/21 04:19 Baso % (Auto) 0.3 % (0.0-1.8) 11/09/21 04:19 Lymph # (Auto) 2.7 K/mm3 (1.2-5.4) 11/09/21 04:19 [place] # (Auto) 0.7 K/mm3 (0.0-0.8) 11/09/21 04:19 Eos # (Auto) 0.0 K/mm3 (0.0-0.4) 11/09/21 04:19 Baso # (Auto) 0.0 K/mm3 (0.0-0.1) 11/09/21 04:19 Seg Neutrophils % 64.2 % (40.0-70.0) 11/09/21 04:19 Seg Neutrophils # 6.1 K/mm3 (1.8-7.7) 11/09/21 04:19 PT 13.2 Sec. (12.2-14.9) 11/07/21 22:48 INR 0.91 (0.87-1.13) 11/07/21 22:48 APTT 24.1 Sec. (24.2-36.6) L 11/07/21 22:48 Thrombin Time 14.1 Sec. (15.1-19.6) L 11/07/21 22:48 Sodium 139 mmol/L (137-145) 11/09/21 04:19 Potassium 4.1 mmol/L (3.6-5.0) 11/09/21 04:19 Chloride 101.7 mmol/L (98-107) 11/09/21 04:19 Carbon Dioxide 23 mmol/L (22-30) 11/09/21 04:19 Anion Gap 18 mmol/L 11/09/21 04:19 BUN 22 mg/dL (7-17) H 11/09/21 04:19 Creatinine 1.0 mg/dL (0.6-1.2) 11/09/21 04:19 Estimated GFR > 60 ml/min 11/09/21 04:19 BUN/Creatinine Ratio 22 % 11/09/21 04:19 Glucose 226 mg/dL (65-100) H 11/09/21 04:19 POC Glucose 141 mg/dL (70-105) H 11/12/21 13:53 Hemoglobin A1c 7.4 % (4-6) H 11/08/21 08:26 Calcium 9.4 mg/dL (8.4-10.2) 11/09/21 04:19 Total Bilirubin 0.50 mg/dL (0.1-1.2) 11/07/21 22:48 AST 20 units/L (5-40) 11/07/21 22:48 ALT 6 units/L (7-56) L 11/07/21 22:48 Alkaline Phosphatase 84 units/L (35-129) 11/07/21 22:48 Total Creatine Kinase 123 units/L (30-135) 11/07/21 22:48 CK-MB (CK-2) 1.3 ng/mL (0.0-4.0) 11/07/21 22:48 CK-MB (CK-2) Rel Index 1.0 (0-4) 11/07/21 22:48 Troponin T < 0.010 ng/mL (0.00-0.029) 11/07/21 22:48 Total Protein 9.4 g/dL (6.3-8.2) H 11/07/21 22:48 Albumin 4.5 g/dL (3.9-5) 11/07/21 22:48 Albumin/Globulin Ratio 0.9 % 11/07/21 22:48 Triglycerides 104 mg/dL (2-149) 11/08/21 08:26 Cholesterol 160 mg/dL (50-199) 11/08/21 08:26 LDL Cholesterol Direct 107 mg/dL (50-130) 11/08/21 08:26 HDL Cholesterol 36 mg/dL (40-59) L 11/08/21 08:26 Cholesterol/HDL Ratio 4.44 % 11/08/21 08:26 Vitamin B12 501.8 pg/mL (211-911) 11/08/21 13:48 Folate 4.67 ng/mL (7.3-26.0) L 11/08/21 13:48 TSH 2.280 mlU/mL (0.270-4.200) 11/11/21 14:25 HCG, Quant < 2 mIU/mL (0-4) 11/07/21 22:48 Plasma/Serum Alcohol < 0.01 % (0-0.07) 11/07/21 22:48 [place]/IV: Voiding Method Toilet Active Medications - Current Medications Current Medications: Generic Name Dose Route Start Last Admin Trade Name Freq PRN Reason Stop Dose Admin Acetaminophen 650 mg 11/08/21 02:17 11/11/21 16:32 Acetaminophen 325 Mg Tab PO 650 mg Q4H PRN Administration Pain, Mild (1-3) Aspirin 325 mg 11/08/21 10:00 11/12/21 13:35 Aspirin 325 Mg Tab PO 325 mg QDAY JAIRO Administration Atorvastatin Calcium 40 mg 11/08/21 22:00 11/11/21 22:40 Atorvastatin 40 Mg Tab PO 40 mg QHS JAIRO Administration Bisacodyl 10 mg 11/08/21 02:17 Bisacodyl 10 Mg Rect Supp DC QDAY PRN Constipation Dextrose 50 ml 11/08/21 08:30 Dextrose 50% In Water (25gm) 50 Ml Syringe IV Q30MIN PRN Hypoglycemia Protocol Gabapentin 100 mg 11/10/21 11:00 11/12/21 13:35 Gabapentin 100 Mg Cap PO 100 mg BID JAIRO Administration Heparin Sodium (Porcine) 5,000 unit 11/08/21 09:00 11/12/21 07:12 Heparin 5,000 Unit/1 Ml Vial SUB-Q 5,000 unit Q8HR JAIRO Administration Hydralazine HCl 10 mg 11/08/21 09:00 Hydralazine 20 Mg/1 Ml Inj IV Q6H PRN Blood Pressure Hydralazine HCl 25 mg 11/08/21 09:00 11/12/21 13:35 Hydralazine 25 Mg Tab PO 25 mg Q8HR JAIRO Administration Hydrochlorothiazide 12.5 mg 11/08/21 10:00 11/12/21 13:35 Hydrochlorothiazide 12.5 Mg Cap PO 12.5 mg QDAY JAIRO Administration Insulin Human Lispro 0 unit 11/08/21 11:30 11/12/21 13:35 Insulin Lispro 100 Unit/Ml SUB-Q Not Given ACHS [facility] Protocol Magnesium Hydroxide 30 ml 11/08/21 02:17 Magnesium Hydroxide (Mom) Oral Liqd Udc PO Q4H PRN Constipation Metformin HCl 500 mg 11/08/21 13:00 11/12/21 07:45 Metformin Xr 500mg Tab PO Not Given QDDIAB [facility] Metoclopramide HCl 10 mg 11/08/21 02:17 Metoclopramide 10 Mg Tab PO Q6H PRN Nausea And Vomiting Morphine Sulfate 2 mg 11/08/21 02:17 11/12/21 07:10 Morphine 2 Mg/1 Ml Inj IV 2 mg Q4H PRN Administration Pain, Moderate (4-6) Morphine Sulfate 4 mg 11/08/21 02:17 Morphine 4 Mg/1 Ml Inj IV Q4H PRN Pain , Severe (7-10) Multivitamins 1 each 11/08/21 14:00 11/12/21 13:35 Multivitamins ,Therapeutic Tab PO 1 each QDAY JAIRO Administration Ondansetron HCl 4 mg 11/08/21 02:17 Ondansetron 4 Mg/2 Ml Inj IV Q8H PRN Nausea And Vomiting Promethazine HCl 25 mg 11/08/21 02:17 Promethazine 25 Mg Rect Supp DC Q6H PRN Nausea And Vomiting Sodium Chloride 10 ml 11/08/21 10:00 11/12/21 13:35 Sodium Chloride 0.9% 10 Ml Flush Syringe IV Not Given BID JAIRO Sodium Chloride 10 ml 11/08/21 02:17 Sodium Chloride 0.9% 10 Ml Flush Syringe IV PRN PRN LINE FLUSH Tizanidine HCl 4 mg 11/08/21 16:53 11/12/21 13:35 Tizanidine Tab 4 Mg Tab PO 4 mg Q8H PRN Administration Muscle Spasm Nutrition/Malnutrition Assess - Dietary Evaluation Nutrition/Malnutrition Findings: Nutrition Notes Start: 11/08/21 12:42 Freq: Status: Active Protocol: Document 11/08/21 12:42 SUNI (Rec: 11/08/21 12:55 SUNI [id number]) Nutrition Notes Need for Assessment generated from: MD Order,Education Initial or Follow up Brief Note Current Diagnosis Hypertension Other Pertinent Diagnosis L-UE Numbness, Radiculopathy, Hyperglycemia. Current Diet Cardiac Diet (since B 11/08). 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 Weight Status Morbidly Obese Subjective/Other Information RD consult for nutrition education assessment. No reports available on Pt's PO intake of meals at the time , will assess at F/U. Pt is on Room Air, O2 saturation @ 99%, acdcording to Physical Assessment History notes. Pt is a former diabetic, stopped tratment after Gastric Sleeve sugery few years ago, (current HbA1c 7.4%), according to Event note. Pt still in critical condition , not a candidate for Nutrition Education at the time, will assess feasibility on F/U. Percent of energy/protein needs met: Prescribed Cardiac Diet provides for energy/protein needs (2,230 Kcal/85 g) during LOS. Nutrition Intervention Follow-Up By: 11/15/21 Additional Comments Nutrition education will be provided on F/U, if feasible. Continue monitoring food tolerance, %PO intake of meals , and BM.
[2021-11-12] MEDS: NIFEdipine XL 30 MG TAB PO SCH (16:44)
[2021-11-13] MEDS: HEPARIN 5,000 UNIT/1 ML VIAL SUB-Q SCH (06:01)
[2021-11-13] MEDS: MORPHINE 2 MG/1 ML INJ IV PRN (06:19)
[2021-11-13] MEDS: NIFEdipine XL 30 MG TAB PO SCH (06:54)
[2021-11-13] MEDS: tiZANidine TAB 4 MG TAB PO PRN (07:19)
--- NOTE | 2021-11-13 07:46 | Magnetic Resonance Report ---
MRI THORACIC SPINE WITHOUT CONTRAST INDICATION / CLINICAL INFORMATION: left dorsal pain and brisk reflexes r/o structural. TECHNIQUE: Multisequence, multiplanar images of the thoracic spine were obtained. Image acquisition o ccurred prior to and following administration of 12 cc ProHance intravenous contrast. COMPARISON: None available. FINDINGS: ALIGNMENT: Normal alignment overall. VERTEBRAE:Normal marrow signal and vertebral body height for age. VISUALIZED SPINAL CORD: No cord signal abnormality. DEGENERATIVE FINDINGS: No significant degenerative findings. PARASPINAL SOFT TISSUES: No significant abnormality. ADDITIONAL FINDINGS: 1.6 cm left renal cyst mid left kidney. 1.7 cm parapelvic right renal cyst upper pole. IMPRESSION: 1. No focal disc herniation, spinal canal stenosis or nerve root compression. Signer Name: Jovan Terrazas II, MD Signed: 11/13/2021 7:41 AM Workstation Name: [id number]
[2021-11-13] MEDS: INSULIN LISPRO 100 UNIT/ML SUB-Q SCH ×2 (08:00→12:20)
[2021-11-13] MEDS: metFORMIN XR 500MG TAB PO SCH (08:00)
[2021-11-13] MEDS: GABAPENTIN 100 MG CAP PO SCH (10:23)
[2021-11-13] MEDS: hydroCHLOROthiazide 12.5 MG CAP PO SCH (10:23)
[2021-11-13] MEDS: ASPIRIN 325 MG TAB PO SCH (10:23)
[2021-11-13] MEDS: MULTIVITAMINS ,THERAPEUTIC TAB PO SCH (10:23)
--- NOTE | 2021-11-13 10:37 | Progress Note ---
Assessment and Plan 1. Abnormal EKG asymptomatic sinus bradycardia(sick sinus syndrome) 2. Arm numbness and tingling sensation 3. Essential hypertension 4. Obesity unspecified EKG shows periods of sinus bradycardia with A-V dissociation and periods of junctional escape rhythm. Echocardiogram shows mild concentric LVH with normal global and regional left ventricular systolic function LVEF is 55 to 60%. Lexiscan MPI normal myocardial perfusion scan images. EKG shows sinus rhythm normal electrical axis and within normal limits. Labs are normal Plan. Patient is asymptomatic and hemodynamically stable abnormal EKG suggest underlying conduction system disease. Patient to be electively evaluated by electrophysiology. Subjective Date of service: 11/13/21 Principal diagnosis: Hypertensive emergency Interval history: No cardiac symptoms complains of back pain. Objective Vital Signs Temp Pulse Resp BP BP Pulse Ox 11/13/21 08:40 100 11/13/21 07:15 98.4 F 48 L 18 129/57 100 11/12/21 23:34 98.5 F 55 L 18 144/70 100 11/12/21 22:00 100 11/12/21 16:50 98.5 F 18 106/46 11/12/21 13:55 59 L 11/12/21 13:54 98.1 F 18 152/74 - Physical Examination General: Appears Well, Other (obese) HEENT: Positive: PERRL, Normocephaly, Sinus Tenderness Neck: Positive: neck supple, trachea midline. Negative: JVD/HJR Cardiac: Positive: Regular Rate, S1/S2, PMI, Dilated, Laterally Displaced. Negative: S3 Lungs: Positive: clear to auscultation, No Wheeze, Rales, Rhonchi Neuro: Positive: Grossly Intact, No Lateralizing Findings Abdomen: Positive: Unremarkable, Soft Skin: Negative: Rash Extremities: Absent: edema - EKG Sinus rhythms and dysrhythmias: sinus rhythm
--- NOTE | 2021-11-13 10:46 | Ultrasound Report ---
US abdomen limited INDICATION / CLINICAL INFORMATION: Evaluate for possible cholelithiasis. COMPARISON: No relevant prior imaging study available. FINDINGS: PANCREAS: No significant abnormality. ABDOMINAL AORTA: No significant abnormality. IVC: No significant abnormality. LIVER: The liver demonstrates increased echogenicity. No focal hepatic lesion. PORTAL VEIN: Normal hepatopedal blood flow in the main portal vein. GALLBLADDER: Gallbladder is mildly distended. There is no cholelithiasis or gallbladder wall thickeni ng. BILE DUCTS: Common bile duct measures 7 mm, borderline dilated. There is also suggestion of mild intr ahepatic biliary dilatation. No obstructing stone or mass identified. RIGHT KIDNEY: 2.2 cm complex appearing cystic structure in the right kidney. No hydronephrosis. FREE FLUID: None. ADDITIONAL FINDINGS: None. IMPRESSION: 1. Borderline dilated common bile duct with suggestion of mild intrahepatic biliary dilatation. No di screte obstructing stone or mass. Recommend correlation with laboratory values to exclude distal bili alexandra obstruction. MRI/MRCP may be helpful for further evaluation. 2. Gallbladder is mildly distended without stones or wall thickening. 3. Indeterminate 2.2 cm complex appearing cystic structure in the right kidney. Recommend attention o n follow-up imaging. 4. Nonspecific diffuse increased hepatic echogenicity, may reflect fatty infiltration or chronic live r disease. Signer Name: Fred Boggs MD Signed: 11/13/2021 10:42 AM Workstation Name: [id number]
--- NOTE | 2021-11-13 11:50 | Discharge Summary ---
Providers - Providers Date of Admission: 11/12/21 18:29 Date of discharge: 11/13/21 Attending physician: JESSIE VALENZUELA MD 11/08/21 Consult to Physician [CONS] Routine Comment: Consulting Provider: TAIF RODRIGUEZ Physician Instructions: Reason For Exam: Left upper extremity Numbness 11/08/21 02:18 Consult to Dietitian/Nutrition [CONS] Routine Physician Instructions: Reason For Exam: Reason for Consult: Nutrition Recommendations Reason for Consult: Diet education Occupational Therapy Evaluate and Treat [CONS] Routine Comment: Reason For Exam: Neuro deficits Physical Therapy Evaluation and Treat [CONS] Routine Comment: Reason For Exam: Neuro deficits 11/08/21 02:24 Speech Therapy Evaluation and Treat [CONS] Routine Reason For Exam: swallow eval 11/10/21 07:23 Consult to Physician [CONS] Routine Comment: Consulting Provider: NARCISA LEES Physician Instructions: Reason For Exam: Bradycardia Primary care physician: FIRE EXTING[employer]ISHER TESTER Hospitalization Reason for admission: Cervical radiculopathy, asymptomatic bradycardia/sick sinus syndrome Condition: Good Pertinent studies: Reviewed. Procedures: Nuclear stress test. Hospital course: Patient is a 41-year-old female past medical history of hypertension, obstructive sleep apnea, and morbid obesity who presented to the emergency department with extremity numbness and tingling in addition to left shoulder pain. Initially the patient endorsed having lower back extremity weakness. She denied any headaches, dizziness, nausea, vomiting, abdominal pain, fevers, chills, or urinary or fecal incontinence. On presentation, the patient was hemodynamically stable with an elevated blood pressure and mild hyperglycemia. Patient underwent CT head noncontrast that was unremarkable. The patient also underwent MRI brain without contrast, MRI cervical spine with and without contrast, nuclear stress test, MRI thoracic spine with and without TTE, and right upper quadrant abdominal ultrasound that were unremarkable. The patient's right upper quadrant ultrasound revealed "borderline dilated common bile duct with suggestion of mild intrahepatic biliary dilatation without any discrete obstructing stones or mass. Recommend correlation with laboratory values to exclude distal biliary obstruction." However, the patient's CMP was unremarkable for signs of biliary obstruction. Patient was evaluated by physical therapy and Occupational Therapy that recommended outpatient PT. Cardiology was consulted for asymptomatic bradycardia that was remarkable for sick sinus syndrome. Patient is EKG revealed "periods of sinus bradycardia with AV disassociation and periods of junctional escape rhythm." The patient has been recommended to follow-up with cardiac electrophysiology electively in outpatient setting, and she expresses understanding. Patient is medically clear for discharge. The patient will follow up with her primary care provider. Patient expressed understanding. Disposition: 01 HOME / SELF CARE / HOMELESS Final Discharge Diagnosis (Prints w/discharge instructions): Asymptomatic bradycardia (persistent), sick sinus syndrome, hypertensive urgency, hypotension, cervical radiculopathy, [id number] type 2 diabetes mellitus with hyperglycemia, morbid obesity Time spent for discharge: 45 min Core Measure Documentation - Palliative Care Palliative Care/ Comfort Measures: Not Applicable - Core Measures Any of the following diagnoses?: none Exam - Constitutional Vitals: Temp Pulse Resp BP Pulse Ox 98.4 F 48 L 18 129/57 100 11/13/21 07:15 11/13/21 07:15 11/13/21 07:15 11/13/21 07:15 11/13/21 08:40 General appearance: Present: no acute distress, well-nourished, obese - EENT Eyes: Present: PERRL, EOM intact ENT: hearing intact, clear oral mucosa, dentition normal - Neck Neck: Present: supple, normal ROM - Respiratory Respiratory effort: normal Respiratory: bilateral: CTA - Cardiovascular Rhythm: regular Heart Sounds: Present: S1 & S2 - Extremities Extremities: no ischemia, pulses intact, pulses symmetrical, No edema, normal temperature, normal color Peripheral Pulses: within normal limits - Abdominal General gastrointestinal: Present: soft, non-tender, non-distended, normal bowel sounds Female genitourinary: Present: deferred - Rectal Rectal Exam: deferred - Integumentary Integumentary: Present: clear, warm, dry - Musculoskeletal Musculoskeletal: strength equal bilaterally - Psychiatric Psychiatric: appropriate mood/affect, intact judgment & insight, memory intact, cooperative - Neurologic Neurologic: CNII-XII intact, moves all extremities - Allied Health Allied health notes reviewed: nursing Plan Activity: advance as tolerated Diet: low salt, diabetic Additional Instructions: Patient is a 41-year-old female past medical history of hypertension, obstructive sleep apnea, and morbid obesity who presented to the emergency department with extremity numbness and tingling in addition to left shoulder pain. Initially the patient endorsed having lower back extremity weakness. She denied any headaches, dizziness, nausea, vomiting, abdominal pain, fevers, chills, or urinary or fecal incontinence. On presentation, the patient was hemodynamically stable with an elevated blood pressure and mild hyperglycemia. Patient underwent CT head noncontrast that was unremarkable. The patient also underwent MRI brain without contrast, MRI cervical spine with and without contrast, nuclear stress test, MRI thoracic spine with and without TTE, and right upper quadrant abdominal ultrasound that were unremarkable. The patient's right upper quadrant ultrasound revealed "borderline dilated common bile duct with suggestion of mild intrahepatic biliary dilatation without any discrete obstructing stones or mass. Recommend correlation with laboratory values to exclude distal biliary obstruction." However, the patient's CMP was unremarkable for signs of biliary obstruction. Patient was evaluated by physical therapy and Occupational Therapy that recommended outpatient PT. Cardiology was consulted for asymptomatic bradycardia that was remarkable for sick sinus syndrome. Patient is EKG revealed "periods of sinus bradycardia with AV disassociation and periods of junctional escape rhythm." The patient has been recommended to follow-up with cardiac electrophysiology electively in outpatient setting, and she expresses understanding. Patient is medically clear for discharge. The patient will follow up with her primary care provider. Patient expressed understanding. Care Plan Goals: Patient is medically clear for discharge. Assessment: Patient is a 41-year-old female past medical history of hypertension, obstructive sleep apnea, and morbid obesity who presented to the emergency department with extremity numbness and tingling in addition to left shoulder pain. Initially the patient endorsed having lower back extremity weakness. She denied any headaches, dizziness, nausea, vomiting, abdominal pain, fevers, chills, or urinary or fecal incontinence. On presentation, the patient was hemodynamically stable with an elevated blood pressure and mild hyperglycemia. Patient underwent CT head noncontrast that was unremarkable. The patient also underwent MRI brain without contrast, MRI cervical spine with and without contrast, nuclear stress test, MRI thoracic spine with and without TTE, and right upper quadrant abdominal ultrasound that were unremarkable. The patient's right upper quadrant ultrasound revealed "borderline dilated common bile duct with suggestion of mild intrahepatic biliary dilatation without any discrete obstructing stones or mass. Recommend correlation with laboratory values to exclude distal biliary obstruction." However, the patient's CMP was unremarkable for signs of biliary obstruction. Patient was evaluated by physical therapy and Occupational Therapy that recommended outpatient PT. Cardiology was consulted for asymptomatic bradycardia that was remarkable for sick sinus syndrome. Patient is EKG revealed "periods of sinus bradycardia with AV disassociation and periods of junctional escape rhythm." The patient has been recommended to follow-up with cardiac electrophysiology electively in outpatient setting, and she expresses understanding. Patient is medically clear for discharge. The patient will follow up with her primary care provider. Patient expressed understanding. Follow up with: PRIMARY MD PHYLLIS [Primary Care Provider] - 7 Days ROXANNE ARGUETA MD [Staff Physician] - 14 Days Prescriptions: AtorvaSTATin [Lipitor] 40 mg PO QHS #30 tablet hydrALAZINE [Apresoline TAB] 10 mg PO TID #90 tab metFORMIN XR [Glucophage XR] 500 mg PO QDDIAB #60 tablet hydroCHLOROthiazide [HCTZ] 25 mg PO BID #60 tab tiZANidine [Zanaflex 4mg TAB] 4 mg PO Q8H PRN #20 tablet PRN Reason: Muscle Spasm
[2021-11-13 12:21] VITALS: BP 104/44
--- NOTE | 2021-11-17 10:51 | Electrocardiograph Report ---
[facility] Test Date: 2021-11-07 Test Time: 22:24:26 Pat Name: KATRINA PACHECO Department: Room: A473 1 Gender: F Central Sterilization Technician: JOVAN : 1980 Requested By: SAM GRANGER Order Number: [id number] Reading MD: Avi Zheng Measurements Intervals [place] Rate: 63 P: 35 RI: 167 QRS: 52 QRSD: 101 T: 27 QT: 415 QTc: 426 Interpretive Statements Sinus rhythm [id number] No previous ECG available for comparison Electronically Signed On 11-17-2021 10:50:45 EDT by Avi Zheng
== END 2021-11-13 15:23 | disposition home or self-care (01) | DRG 74 ==
LOC: ED 21:56 → INTOOBSV 11-08 02:18 → 4A 11-08 02:18 → EEVIPCON 11-08 02:18 → 4A 11-08 02:49 → OBSVTOIN 11-12 18:29
PROVIDERS: ADMIT Internal Medicine Geriatric Medicine; ATTEND Student in an Organized Health Care Education/Training Program
DX: M54.12 Radiculopathy, cervical region (principal); Z68.41 Body mass index [BMI] 40.0-44.9, adult; I49.5 Sick sinus syndrome; I16.0 Hypertensive urgency; E66.01 Morbid (severe) obesity due to excess calories; R20.0 Anesthesia of skin; I10 Essential (primary) hypertension; R00.1 Bradycardia, unspecified; E11.65 Type 2 diabetes mellitus with hyperglycemia; E78.5 Hyperlipidemia, unspecified; Z88.8 Allergy status to other drugs, medicaments and biological substances
CPT/HCPCS: 36415; 70450; 70551; 72156; 72157; 76705; 78452; 80048; 80053; 80061; 80320; 82550; 82553; 82607; 82747; 82962; 83036; 84443; 84484; 84702; 85025; 85610; 85670; 85730; 93005; 93017; 93306; 93880; G0378; Q9967; A9502; A9575; C8929; G0480; J0360; J1644; J1815; J2270; J2785

== ENCOUNTER 2022-01-15 22:31 | Emergency (ER) | payer OTHER ==
[2022-01-16] MEDS ORDERED: SODIUM CHLORIDE 0.9% 1000 ML 1,000 ML IV ONE ×2 (00:54→00:55)
[2022-01-16] MEDS ORDERED: INSULIN REGULAR, HUMAN 100 UNITS/1 ML IV ONE ×2 (00:55→06:01)
[2022-01-16] MEDS ORDERED: dexAMETHasone 4 MG/ML VIAL IV ONE (01:14)
[2022-01-16] MEDS ORDERED: KETOROLAC 30 MG/1 ML INJ IV ONE (01:14)
--- NOTE | 2022-01-16 01:18 | Emergency Department Report ---
HPI - General Chief Complaint: Hyperglycemia PUI?: No Time Seen by Provider: 01/16/22 00:54 - HPI HPI: 41-year-old morbidly obese female with history of type 2 diabetes, presents for evaluation of 3 weeks of right calf pain and several days of persistently elevated blood sugars. Patient reports she was seen previously at 2 other emergency departments for her pain and had an ultrasound during one of the visits and stated "it was negative for DVT." She states she has been taking gabapentin without improvement in her pain. She also reports having elevated blood glucoses at home. She takes metformin and states she is compliant. Patient that she states she is compliant with a diabetic diet but when asked further, patient confirms that she has been consuming sugary juices as well as multiple sandwiches throughout the day. She reports feeling dizzy while in triage. No chest pain or shortness of breath no difficulty breathing no palpitations no loss of consciousness no vision changes no difficulty talking walking or word finding. Pain currently 3 out of 10 ED Past Medical Hx - Past Medical History Hx Hypertension: Yes Hx Heart Attack/AMI: No Hx Congestive Heart Failure: No Hx Diabetes: No Hx Deep Vein Thrombosis: No Hx Pulmonary Embolism: No Hx Liver Disease: No Hx Renal Disease: No Hx Arthritis: No Hx Headaches / Migraines: No Hx Seizures: No Hx Kidney Stones: No Hx Asthma: No Hx COPD: No Hx Tuberculosis: Yes Hx Dementia: No Hx HIV: No Additional medical history: morbid obesity - Surgical History Hx Coronary Stent: No Hx Open Heart Surgery: No Hx Pacemaker: No Hx Internal Defibrillator: No Additional Surgical History: x 2 - Social History Smoking Status: Never Smoker - Medications Home Medications: Home Medications Medication Instructions Recorded Confirmed Last Taken Type AtorvaSTATin [Lipitor] 40 mg PO QHS #30 tablet 11/13/21 Unknown Rx hydrALAZINE [Apresoline TAB] 10 mg PO TID #90 tab 11/13/21 Unknown Rx hydroCHLOROthiazide [HCTZ] 25 mg PO BID #60 tab 11/13/21 Unknown Rx metFORMIN XR [Glucophage XR] 500 mg PO QDDIAB #60 tablet 11/13/21 Unknown Rx tiZANidine [Zanaflex 4mg TAB] 4 mg PO Q8H PRN #20 tablet 11/13/21 Unknown Rx Ketorolac [Toradol] 10 mg PO Q6H PRN 3 Days #12 01/16/22 Unknown Rx methocarbamoL [Methocarbamol] 500 mg PO QID PRN 7 Days #28 01/16/22 Unknown Rx ED Review of Systems ROS: Stated complaint: HIGH BLOOD SUGAR,DIZZINESS,RT LEG PAIN Other details as noted in HPI Comment: All other systems reviewed and negative Physical Exam - Physical Exam Vital Signs: Vital Signs 01/15/22 23:19 Temperature 98.7 F Pulse Rate 77 Respiratory 18 Rate Blood Pressure 149/108 O2 Sat by Pulse 98 Oximetry General: Gen: pt is well appearing, no acute distress, asleep on stretcher, easily arousable HEENT: Normocephalic atraumatic pupils equally round and reactive to light extraocular muscles intact sclera anicteric Neck: Full range of motion, no midline spinal tenderness palpation, no JVD, no carotid bruits, no nuchal rigidity CVS: S1-S2 regular rate and rhythm with no gallops rubs or murmurs, chest wall nontender Pulmonary: Clear to auscultation bilaterally, no wheezes rales or rhonchi Abdomen: Soft nondistended nontender no guarding or rebound tenderness, no palpable deformities or step-offs, normal active bowel sounds, no hepatosplenomegaly, no pulsatile masses : Deferred Extremities: No cyanosis no clubbing no edema, intact distal peripheral pulses, mild R calf ttp on exam; no palpable cords; pt has intact popiliteal/femora;/DP/pT pulses in bilateral lower extremities; <2 sec cap refill in toes of both feet; Integumentary: Skin normal, no petechia no purpura no abscess no lacerations no evidence of trauma no evidence of infection Neuro: Patient is awake alert and oriented to person place time situation, mentating well, cranial nerves II through XII intact, no focal neurodeficits, sensation grossly tact Psych: Calm cooperative, mood affect normal ED Course Vital Signs 01/15/22 23:19 Temperature 98.7 F Pulse Rate 77 Respiratory 18 Rate Blood Pressure 149/108 O2 Sat by Pulse 98 Oximetry - Reevaluation(s) Reevaluation #1: 01/16/22 01:20 pt asleep; comfortable appearing, NAD Reevaluation #2: 01/16/22 05:46 pt observed sleeping in her examination room; she is comfortable and well appearing; easily arousable; she does not appear to be in any pain or any extremis, ED Medical Decision Making - Lab Data Result diagrams: 01/16/22 01:16 01/16/22 01:16 - EKG Data When compared to previous EKG there are: no significant change - Radiology Data Radiology results: report reviewed - Medical Decision Making 41-year-old morbidly obese female with multiple medical comorbidities presents from external triage for complaint of right leg pain, dizziness, and hyperglycemia. Vitals are stable. Patient has hyperglycemia without concomitant elevated anion gap metabolic acidosis. She was treated for hyperglycemia with normal saline as well as insulin. Her serum glucose significantly improved. Venous Doppler ultrasound of right lower extremity negative for DVT. Examination of her leg does not reveal any overt signs , compartment syndrome, neurovascular compromise, or any other limb threatening pathology at this time for my assessment. Patient advised to call her primary care doctor today to schedule immediate follow-up appointment for reassessment and further management. All questions answered at the patient's bedside Critical care attestation.: If time is entered above; I have spent that time in minutes in the direct care of this critically ill patient, excluding procedure time. ED Disposition Clinical Impression: Hyperglycemia due to type 2 diabetes mellitus, Leg pain, Hyperglycemia Disposition: 01 HOME / SELF CARE / HOMELESS Is pt being admited?: No Does the pt Need Aspirin: No Condition: Stable Instructions: Diabetes Mellitus Type 2 in Adults (ED), Hyperglycemia, Diabetes Mellitus and Exercise Additional Instructions: Please contact your primary care doctor today to schedule immediate follow-up appointment. This is very important. The cause of the pain in your right leg for the past 3 weeks is not clear at this time. Also your doctor will need to discuss with you your current elevated blood glucose levels that have been occurring. Your doctor may decide to in crease your metformin dose, and/or add an additional medication to help lower your blood sugars. It is strongly advised that you avoid any processed carbohydrates such as breads, pastries, sugary foods, and sodas and/or juices as these will increase your sugar levels and contribute to you not feeling well. Take ketorolac as needed for pain in your leg. You may alternate ketorolac with extra strength Tylenol for additional pain management. If your pain is not improved, please consider taking methocarbamol. Methocarbamol is a muscle relaxant and it can make you sleepy. It is advised that if you take this medication, you discontinue using gabapentin because taking these medications together can be dangerous and cause you to stop breathing, and or make you feel lightheaded and dizzy. Prescriptions: methocarbamoL [Methocarbamol] 500 mg PO QID PRN 7 Days #28 PRN Reason: Pain , Severe (7-10) Ketorolac [Toradol] 10 mg PO Q6H PRN 3 Days #12 PRN Reason: Pain Referrals: PRIMARY CARE, [Primary Care Provider] - 3-5 Days
[2022-01-16 01:47] LABS: Basophils % (Auto) 0.6 % (0.0-1.8); Eosinophils # (Auto) 0.1 K/mm3 (0.0-0.4); Eosinophils % (Auto) 1.8 % (0.0-4.3); Lymphocytes # (Auto) 2.3 K/mm3 (1.2-5.4); Lymphocytes % (Auto) 30.1 % (13.4-35.0); Mean Corpuscular HGB Conc 30 % (30-34); Monocytes # (Auto) 0.6 K/mm3 (0.0-0.8); Monocytes % (Auto) 8.4 % (0.0-7.3); Platelet Count 374 K/mm3 (140-440); Red Blood Count 5.46 M/mm3 (3.65-5.03); Red Cell Distribution Width 19.6 % (13.2-15.2)
[2022-01-16 01:56] LABS: Hemoglobin 9.5 gm/dl (10.1-14.3); Mean Corpuscular Volume 59 fl (79-97)
[2022-01-16 02:00] LABS: BUN/Creatinine Ratio 15; Blood Urea Nitrogen 12 mg/dL (7-17); Calcium 9.5 mg/dL (8.4-10.2); Hemolysis Index 0
--- NOTE | 2022-01-16 02:51 | Vascular Lab Report ---
DUPLEX DOPPLER LOWER EXTREMITY VEINS, RIGHT INDICATION / CLINICAL INFORMATION: R calf pain x 3 weeks r/o DVT. TECHNIQUE: Duplex doppler imaging was performed through the veins of the right lower extremity using venous compression and other maneuvers. COMPARISON: None available. FINDINGS: RIGHT COMMON FEMORAL VEIN: Negative. RIGHT FEMORAL VEIN: Negative. RIGHT POPLITEAL VEIN: Negative. RIGHT CALF VEINS: Negative. ADDITIONAL FINDINGS: None. IMPRESSION: 1. No sonographic evidence for DVT in the right lower extremity. Signer Name: Will Garrison MD Signed: 01/16/2022 2:47 AM Workstation Name: [id number]
[2022-01-16 07:36] VITALS: BP 149/88
== END 2022-01-16 07:55 | disposition home or self-care (01) ==
LOC: EEVIPCON 22:31 → ED 22:31
DX: E11.65 Type 2 diabetes mellitus with hyperglycemia (principal); M79.604 Pain in right leg; I10 Essential (primary) hypertension; Z98.890 Other specified postprocedural states; Z88.8 Allergy status to other drugs, medicaments and biological substances; Z79.899 Other long term (current) drug therapy
CPT/HCPCS: 36415; 80048; 82962; 84703; 85025; 93971; 96361; 96374; 96375; 96376; 99284; J1100; J1885; J7030; Q9967; J1815